=== PATIENT | male | born 1950 | race Caucasian/White ===

== ENCOUNTER → 2019-12-06 09:37 | Outpatient (BNVA) | payer MEDICARE, BC, SELFPAY | PROVIDERS: Family Provider Family Medicine; PCP Family Medicine; Visit Provider Urology | DX: R97.20 Elevated prostate specific antigen [PSA] (principal) | CPT/HCPCS: 81001; 84153 ==

== ENCOUNTER → 2019-12-20 11:54 | Outpatient (BNVA) | payer MEDICARE, BC, SELFPAY | PROVIDERS: Family Provider Family Medicine; PCP Family Medicine; Visit Provider Urology | DX: N40.0 Benign prostatic hyperplasia without lower urinary tract symptoms (principal); R97.20 Elevated prostate specific antigen [PSA] | CPT/HCPCS: 88305 ==

== ENCOUNTER → 2020-06-23 08:51 | Outpatient (BNVA) | payer MEDICARE, BC, SELFPAY | PROVIDERS: Family Provider Family Medicine; PCP Family Medicine; Visit Provider Urology | DX: N39.9 Disorder of urinary system, unspecified (principal); R97.20 Elevated prostate specific antigen [PSA] | CPT/HCPCS: 81003; G0103 ==

== ENCOUNTER → 2020-11-16 08:00 | Outpatient (BNVA) | payer MEDICARE, BC, SELFPAY | PROVIDERS: Family Provider Family Medicine; PCP Family Medicine; Visit Provider Urology | DX: R97.20 Elevated prostate specific antigen [PSA] (principal); N40.0 Benign prostatic hyperplasia without lower urinary tract symptoms | CPT/HCPCS: 81003; 84153 ==

== ENCOUNTER → 2020-12-02 11:53 | Outpatient (BNVA) | payer MEDICARE, BC, SELFPAY | PROVIDERS: Family Provider Family Medicine; PCP Family Medicine; Visit Provider Nurse Practitioner Family | DX: Z20.822 Contact with and (suspected) exposure to COVID-19 (principal) | CPT/HCPCS: 87635 ==

== ENCOUNTER 2020-12-04 17:46 | Emergency (ER) | payer MEDICARE, BC, SELFPAY ==
[2020-12-04 18:15] VITALS: BP 122/83; PULSE 100; RESP 16; TEMP 36.9; O2SAT 96
--- NOTE | 2020-12-04 19:57 | XRR_ITS ---
PROCEDURE INFORMATION: Exam: XR Chest Exam date and time: 12/04/2020 7:57 PM Age: 70 years old Clinical indication: Cough; Additional info: Fever TECHNIQUE: Imaging protocol: XR of the chest. Views: 1 view. COMPARISON: No relevant prior studies available. FINDINGS: Lungs: Unremarkable. No consolidation. Pleural spaces: Unremarkable. No pleural effusion. No pneumothorax. Heart/Mediastinum: Unremarkable. No cardiomegaly. Bones/joints: Moderate thoracic spondylosis. XR/XR chest 1V portable [id number] IMPRESSION: No acute findings. Radiation Dose CTDIVOL = (mGy): DLP = (mGy-cm)
--- NOTE | 2020-12-04 19:58 | ED_ITS ---
Documented by User: BIANKA Tabor 12/04/20 21:38 HPI - Fever General: Chief Complaint: Fever Stated Complaint: Fever Time Seen by Provider: 12/04/20 19:52 History of Present Illness: HPI Narrative: Patient's had fever x7 days. Just did not feel good. Patient is diabetic sugars have been in the mid 100s. Patient have Covid test done last Monday and it was sent for [facility] Covid testing was negative. Patient does complain about body aches. Denies any other Covid symptoms. MD elicited complaint: fever Onset (ago): day(s) Exacerbating factors: nothing Relieving factors: nothing Associated symptoms: Reports chills and other (Low back pain); Deny abdominal pain, chest pain, extremity pain, headache(s), nasal congestion, nausea or vomiting Review of Systems Const: Reports: fever(s), chills and body aches Eyes: Denies: change in vision or blurry vision ENMT: Denies: throat pain or nasal congestion Card: Denies: chest pain or dyspnea on exertion Resp: Denies: dyspnea, productive cough or non-productive cough GI: Denies: abdominal pain, nausea or vomiting : Denies: difficulty urinating Musc: Reports: back pain; Denies: extremity pain Skin/Breast: Denies: rash Neuro: Denies: headache(s) Psych: Denies: anxiety or depression Jp/Lymph: Denies: easy bruising PFS ED PFSH: Medical History (Updated 12/04/20 @ 21:37 by BIANKA Tabor) Elevated PSA Family History Other Diabetes Social History Smoking and tobacco status: never smoked Alcohol intake: current Alcohol intake frequency: few times a month Adopted: No Caregiver/support person: No Lives independently: No Marital status: Current occupational status: employed Physical Exam Const: COMMON NORMALS: no acute distress, average body habitus and patient oriented x3 HENMT: COMMON NORMALS: normocephalic HEAD & SCALP: normal to inspection and normocephalic FACE & SINUS: normal facial exam Eye: COMMON NORMALS: conjunctivae normal GENERAL EYE: appearance normal, both eyes and all related structures CONJUNCTIVA: Yes conjunctivae normal Neck/C-Spine: COMMON NORMALS: no JVD Chest: COMMONS NORMALS: normal inspection of the chest Resp: COMMON NORMALS: normal respiratory effort and clear to auscultation bilaterally AUSCULTATION: clear to auscultation bilaterally Cardio: COMMON NORMALS: no JVD, regular rate and regular rhythm RATE: regular rate RHYTHM: regular rhythm GI: COMMON NORMALS: Normal to inspection, nondistended, normoactive bowel sounds present Extremity: COMMON NORMALS: normal to inspection and full ROM Neuro: COMMON NORMALS: patient oriented x3 Course Vital Signs: Vital signs: Vital Signs Temperature 98.5 F 12/04/20 18:15 Pulse Rate 86 12/04/20 21:51 Respiratory Rate 16 12/04/20 21:51 Blood Pressure 124/78 12/04/20 21:51 Pulse Oximetry 98 12/04/20 21:51 MDM - Fever MDM Narrative: Medical decision making narrative: Patient presents with the fever intermittent over the last 7 days. Had Covid test x2 now both negative. Flu is negative rest labs look good except that he did spill some sugar over to his urine with some ketones. Patient is diabetic. Radiology study was negative patient is follow-up with Dr. Salazar who he has appoint with on Monday. Lab Data: Labs: Lab Results 12/04/20 12/04/20 12/04/20 20:14 20:14 20:14 WBC 8.7 10^3/uL 10^3/ uL (4.0-10.0) RBC 5.30 10^6/uL 10^6 /uL (4.1-5.3) Hgb 16.1 g/dL g/dL (11.7-16.6) Hct 48.6 % % (42.0-52.0) MCV 91.7 fl fl (80-94) MCH 30.4 pg pg (28.0-34.0) MCHC 33.1 g/dL g/dL (30.0-36.0) RDW 12.7 % % (12.1-15.1) Plt Count 195 10^3/cmm 10^3 /cmm (130-400) MPV 10.7 fL H fL (7.4-10.4) Neut % (Auto) 72.2 % % Lymph % (Auto) 14.2 % % [place] % (Auto) 8.9 % % Eos % (Auto) 3.0 % % Baso % (Auto) 1.4 % % Neut # (Auto) 6.24 10^3/uL 10^3 /uL (1.8-7.7) Lymph # (Auto) 1.2 10^3/uL 10^3/ uL (0.8-4.8) [place] # (Auto) 0.8 10^3/uL 10^3/ uL (0.2-0.9) Eos # (Auto) 0.3 10^3/uL 10^3/ uL (0.0-0.8) Baso # (Auto) 0.1 10^3/uL 10^3/ uL (0.0-0.1) Nucleated RBC % (a uto) 0 % % Nucleated RBCs # 0.0 /100WBC /100W BC Sodium 137 mmol/L mmol/L (136-145) Potassium 4.0 mmol/L mmol/L (3.5-5.1) Chloride 97 mmol/L L mmol/ L (98-107) Carbon Dioxide 27 mmol/L mmol/L (22-29) Anion Gap 17.0 (5-19) BUN 19 mg/dL mg/dL (8-23) Creatinine 0.7 mg/dL mg/dL (0.7-1.2) GFR Calculation 111.5 mL/min mL/m in (90-130) Glucose 122 mg/dL H mg/dL (65-115) Calculated Osmolal ity 288 mOsm/kg mOsm/ kg (285-295) Lactate 1.3 mmol/L mmol/L (0.5-2.2) Calcium 9.8 mg/dL mg/dL (8.5-10.5) Total Bilirubin 0.5 mg/dL mg/dL (0.15-1.2) AST 11 U/L U/L (0-40) ALT 10 U/L U/L (0-41) Alkaline Phosphata se 84 IU/L IU/L (40-130) Total Protein 7.6 g/dL g/dL (6.6-8.7) Albumin 4.1 g/dL g/dL (3.5-5.2) Globulin 3.5 g/dL g/dL (1.3-4.6) Urine Color Urine Appearance Urine pH Ur Specific Gravit y Urine Protein Urine Glucose (UA) Urine Ketones Urine Blood Urine Nitrate Urine Bilirubin Urine Urobilinogen Ur Leukocyte Polina ase Influenza Type A A g Influenza Type B A g SARS-CoV-2 Ag (Rap id) 12/04/20 12/04/20 12/04/20 20:20 20:42 20:44 WBC RBC Hgb Hct MCV MCH MCHC RDW Plt Count MPV Neut % (Auto) Lymph % (Auto) [place] % (Auto) Eos % (Auto) Baso % (Auto) Neut # (Auto) Lymph # (Auto) [place] # (Auto) Eos # (Auto) Baso # (Auto) Nucleated RBC % (a uto) Nucleated RBCs # Sodium Potassium Chloride Carbon Dioxide Anion Gap BUN Creatinine GFR Calculation Glucose Calculated Osmolal ity Lactate Calcium Total Bilirubin AST ALT Alkaline Phosphata se Total Protein Albumin Globulin Urine Color Yellow (Yellow) Urine Appearance Clear (CLEAR) Urine pH 5 (5-7) Ur Specific Gravit y 1.020 (1.005-1.030) Urine Protein Neg (Negative) Urine Glucose (UA) 4+ H (Normal) Urine Ketones 2+ H (Negative) Urine Blood Neg (Negative) Urine Nitrate Negative (Negative) Urine Bilirubin Neg (Negative) Urine Urobilinogen Norm mg/dL mg/dL (Negative) Ur Leukocyte Polina ase Negative (Negative) Influenza Type A A g Negative (Negative) Influenza Type B A g Negative (Negative) SARS-CoV-2 Ag (Rap id) Negative (Negative) Discharge Plan Discharge Patient Disposition: Home Clinical Impression: Acute viral syndrome Condition: Stable Prescriptions: No Action sildenafil 100 mg tablet 100 mg PO DAILY PRN (Reason: sexual activity) Qty: 10 RF: 12 lidocaine HCl 2 % jelly 5 ml INTRA-URET ONCE Qty: 1 RF: 0 Janumet XR 100-1,000 mg tablet, ER multiphase 24 hr 1 tab PO DAILY RF: 0 Jardiance 25 mg tablet 25 mg PO DAILY RF: 0 glyburide 1.25 mg tablet 1.25 mg PO DAILY RF: 0 aspirin [Adult Low Dose Aspirin] 81 mg tablet,delayed release (DR/EC) 81 mg PO DAILY RF: 0 atorvastatin 10 mg tablet 10 mg PO DAILY RF: 0 magnesium citrate 100 mg capsule 100 mg PO DAILY RF: 0 cinnamon bark [Cinnamon] 500 mg capsule 500 mg PO DAILY RF: 0 garlic 1,000 mg capsule 1,000 mg PO DAILY RF: 0 cholecalciferol (vitamin D3) 125 mcg (5,000 unit) capsule 125 mcg PO DAILY RF: 0 Discharge Orders: Discharge ED (Routine); Ordered 12/04/20 Ordered By: Tin Weiss Referrals: Santana Salazar MD [Primary Care Provider] - Discharge Diet: Usual diet Discharge Activity: Increase activity as tolerated Patient Instructions: Viral Syndrome (ED) Activity Restrictions/Additional Instructions: Keep appointment Dr. Salazar on Monday. Take plenty of fluids daily. Continue to monitor sugars. Can take Tylenol and/or ibuprofen for fever or discomfort. Can return to the ER if necessary. Coding Level of Care Code ED Pool Nurse for Chg Fwd Exam Comprehensive Documented by User: Debora Garcia MD 12/05/20 12:49 HPI - Fever General: Chief Complaint: Fever Stated Complaint: Fever Time Seen by Provider: 12/04/20 19:52 PFSH ED PFSH: Medical History (Updated 12/04/20 @ 21:37 by BIANKA Tabor) Elevated PSA Family History Other Diabetes Social History Smoking and tobacco status: never smoked Alcohol intake: current Alcohol intake frequency: few times a month Adopted: No Caregiver/support person: No Lives independently: No Marital status: Current occupational status: employed Course Vital Signs: Vital signs: Vital Signs Temperature 98.5 F 12/04/20 18:15 Pulse Rate 86 12/04/20 21:51 Respiratory Rate 16 12/04/20 21:51 Blood Pressure 124/78 12/04/20 21:51 Pulse Oximetry 98 12/04/20 21:51 MDM - Fever Lab Data: Labs: Lab Results 12/04/20 12/04/20 12/04/20 20:14 20:14 20:14 WBC 8.7 10^3/uL 10^3/ uL (4.0-10.0) RBC 5.30 10^6/uL 10^6 /uL (4.1-5.3) Hgb 16.1 g/dL g/dL (11.7-16.6) Hct 48.6 % % (42.0-52.0) MCV 91.7 fl fl (80-94) MCH 30.4 pg pg (28.0-34.0) MCHC 33.1 g/dL g/dL (30.0-36.0) RDW 12.7 % % (12.1-15.1) Plt Count 195 10^3/cmm 10^3 /cmm (130-400) MPV 10.7 fL H fL (7.4-10.4) Neut % (Auto) 72.2 % % Lymph % (Auto) 14.2 % % [place] % (Auto) 8.9 % % Eos % (Auto) 3.0 % % Baso % (Auto) 1.4 % % Neut # (Auto) 6.24 10^3/uL 10^3 /uL (1.8-7.7) Lymph # (Auto) 1.2 10^3/uL 10^3/ uL (0.8-4.8) [place] # (Auto) 0.8 10^3/uL 10^3/ uL (0.2-0.9) Eos # (Auto) 0.3 10^3/uL 10^3/ uL (0.0-0.8) Baso # (Auto) 0.1 10^3/uL 10^3/ uL (0.0-0.1) Nucleated RBC % (a uto) 0 % % Nucleated RBCs # 0.0 /100WBC /100W BC Sodium 137 mmol/L mmol/L (136-145) Potassium 4.0 mmol/L mmol/L (3.5-5.1) Chloride 97 mmol/L L mmol/ L (98-107) Carbon Dioxide 27 mmol/L mmol/L (22-29) Anion Gap 17.0 (5-19) BUN 19 mg/dL mg/dL (8-23) Creatinine 0.7 mg/dL mg/dL (0.7-1.2) GFR Calculation 111.5 mL/min mL/m in (90-130) Glucose 122 mg/dL H mg/dL (65-115) Calculated Osmolal ity 288 mOsm/kg mOsm/ kg (285-295) Lactate 1.3 mmol/L mmol/L (0.5-2.2) Calcium 9.8 mg/dL mg/dL (8.5-10.5) Total Bilirubin 0.5 mg/dL mg/dL (0.15-1.2) AST 11 U/L U/L (0-40) ALT 10 U/L U/L (0-41) Alkaline Phosphata se 84 IU/L IU/L (40-130) Total Protein 7.6 g/dL g/dL (6.6-8.7) Albumin 4.1 g/dL g/dL (3.5-5.2) Globulin 3.5 g/dL g/dL (1.3-4.6) Urine Color Urine Appearance Urine pH Ur Specific Gravit y Urine Protein Urine Glucose (UA) Urine Ketones Urine Blood Urine Nitrate Urine Bilirubin Urine Urobilinogen Ur Leukocyte Polina ase Influenza Type A A g Influenza Type B A g SARS-CoV-2 Ag (Rap id) 12/04/20 12/04/20 12/04/20 20:20 20:42 20:44 WBC RBC Hgb Hct MCV MCH MCHC RDW Plt Count MPV Neut % (Auto) Lymph % (Auto) [place] % (Auto) Eos % (Auto) Baso % (Auto) Neut # (Auto) Lymph # (Auto) [place] # (Auto) Eos # (Auto) Baso # (Auto) Nucleated RBC % (a uto) Nucleated RBCs # Sodium Potassium Chloride Carbon Dioxide Anion Gap BUN Creatinine GFR Calculation Glucose Calculated Osmolal ity Lactate Calcium Total Bilirubin AST ALT Alkaline Phosphata se Total Protein Albumin Globulin Urine Color Yellow (Yellow) Urine Appearance Clear (CLEAR) Urine pH 5 (5-7) Ur Specific Gravit y 1.020 (1.005-1.030) Urine Protein Neg (Negative) Urine Glucose (UA) 4+ H (Normal) Urine Ketones 2+ H (Negative) Urine Blood Neg (Negative) Urine Nitrate Negative (Negative) Urine Bilirubin Neg (Negative) Urine Urobilinogen Norm mg/dL mg/dL (Negative) Ur Leukocyte Polina ase Negative (Negative) Influenza Type A A g Negative (Negative) Influenza Type B A g Negative (Negative) SARS-CoV-2 Ag (Rap id) Negative (Negative) Discharge Plan Discharge Patient Disposition: Home Clinical Impression: Acute viral syndrome Condition: Stable Prescriptions: No Action sildenafil 100 mg tablet 100 mg PO DAILY PRN (Reason: sexual activity) Qty: 10 RF: 12 lidocaine HCl 2 % jelly 5 ml INTRA-URET ONCE Qty: 1 RF: 0 Janumet XR 100-1,000 mg tablet, ER multiphase 24 hr 1 tab PO DAILY RF: 0 Jardiance 25 mg tablet 25 mg PO DAILY RF: 0 glyburide 1.25 mg tablet 1.25 mg PO DAILY RF: 0 aspirin [Adult Low Dose Aspirin] 81 mg tablet,delayed release (DR/EC) 81 mg PO DAILY RF: 0 atorvastatin 10 mg tablet 10 mg PO DAILY RF: 0 magnesium citrate 100 mg capsule 100 mg PO DAILY RF: 0 cinnamon bark [Cinnamon] 500 mg capsule 500 mg PO DAILY RF: 0 garlic 1,000 mg capsule 1,000 mg PO DAILY RF: 0 cholecalciferol (vitamin D3) 125 mcg (5,000 unit) capsule 125 mcg PO DAILY RF: 0 Discharge Orders: Discharge ED (Routine); Ordered 12/04/20 Ordered By: Tin Weiss Referrals: Santana Salazar MD [Primary Care Provider] - Discharge Diet: Usual diet Discharge Activity: Increase activity as tolerated Patient Instructions: Viral Syndrome (ED) Activity Restrictions/Additional Instructions: Keep appointment Dr. Salazar on Monday. Take plenty of fluids daily. Continue to monitor sugars. Can take Tylenol and/or ibuprofen for fever or discomfort. Can return to the ER if necessary. Coding Level of Care Code ED Pool Nurse for [place] Fwd Exam Comprehensive
[2020-12-04 20:31] LABS: Add Urine Microscopic? NO; Charge for UA Resulting for Rev
[2020-12-04 20:33] LABS: Bilirubin Urine Neg (Negative); Blood Urine Neg (Negative); Glucose Urine UA 4+ (Normal); Ketones Urine 2+ (Negative); Leukocyte Esterase Urine Negative (Negative); Nitrate Urine Negative (Negative); Protein Urine Neg (Negative); Urine Appearance Clear (CLEAR); Urine Color Yellow (Yellow); Urobilinogen Urine Norm (Negative); pH Urine 5 (5-7)
[2020-12-04 20:53] LABS: Basophils # 0.1 10^3/uL (0.0-0.1); Basophils % 1.4 %; Eosinophils # 0.3 10^3/uL (0.0-0.8); Hematocrit 48.6 % (42.0-52.0); Hemoglobin 16.1 g/dL (11.7-16.6); Lymphocytes # 1.2 10^3/uL (0.8-4.8); Lymphocytes % 14.2 %; Mean Corpuscular HGB Conc 33.1 g/dL (30.0-36.0); Mean Corpuscular Hemoglobin 30.4 pg (28.0-34.0); Mean Corpuscular Volume 91.7 fl (80-94); Mean Platelet Volume 10.7 fL (7.4-10.4); Monocytes # 0.8 10^3/uL (0.2-0.9); Monocytes % 8.9 %; Neutrophils # 6.24 10^3/uL (1.8-7.7); Neutrophils % 72.2 %; Nucleated Red Blood Cells % 0 %; Platelet Count 195 10^3/cmm (130-400); Red Cell Distribution Width 12.7 % (12.1-15.1); White Blood Count 8.7 10^3/uL (4.0-10.0)
[2020-12-04 21:08] LABS: Alanine Aminotransferase 10 U/L (0-41); Albumin Level 4.1 g/dL (3.5-5.2); Alkaline Phosphatase 84 IU/L (40-130); Aspartate Amino Transferase 11 U/L (0-40); Blood Urea Nitrogen 19 mg/dL (8-23); Calcium 9.8 mg/dL (8.5-10.5); Carbon Dioxide 27 mmol/L (22-29); Chloride 97 mmol/L (98-107); Globulin 3.5 g/dL (1.3-4.6); Glomerular Filtration Rate 111.5 mL/min (90-130); Glucose 122 mg/dL (65-115); Osmolality Calculated 288 mOsm/kg (285-295); Sodium 137 mmol/L (136-145); Total Bilirubin 0.5 mg/dL (0.15-1.2); Total Protein 7.6 g/dL (6.6-8.7)
[2020-12-04 21:09] LABS: Lactate (Lactic Acid level) 1.3 mmol/L (0.5-2.2)
[2020-12-04 21:27] LABS: SARS Covid-2 Antigen Negative (Negative)
[2020-12-04 21:27] LABS: Influenza A by IFA Negative (Negative); Influenza B by IFA Negative (Negative)
[2020-12-04 21:51] VITALS: BP 124/78; PULSE 86; RESP 16; O2SAT 98
== END 2020-12-04 21:53 | disposition home or self-care (01) ==
PROVIDERS: Emergency Provider Nurse Practitioner Family; PCP Family Medicine
DX: B34.9 Viral infection, unspecified (principal); Z79.82 Long term (current) use of aspirin; Z20.822 Contact with and (suspected) exposure to COVID-19
CPT/HCPCS: 71045; 80053; 81003; 83605; 85025; 87426; 87804; 99283

== ENCOUNTER 2020-12-08 11:50 | Inpatient (IN) | payer MEDICARE, BC, SELFPAY ==
[2020-12-08 12:17] VITALS: BP 135/82; PULSE 85; RESP 16; TEMP 36.8; O2SAT 97
--- NOTE | 2020-12-08 12:23 | XR_ITS ---
WS: [id number] XR chest 1V portable [id number] REASON FOR EXAM: weakness, fevers FINDINGS: Chest is unchanged compared to 12/04/2020. The heart and mediastinum are within normal limits. Calcified granulomatous disease in both hemithoraces. No active pulmonary parenchymal or pleural disease is noted. Degenerative changes in the mid and lower thoracic spine. XR/XR chest 1V portable [id number] IMPRESSION: No acute chest abnormality.
--- NOTE | 2020-12-08 18:21 | ECG_ITS ---
[facility] Test Date: 2020-12-08 Pat Name: Diaz Whaley Department: Room: Gender: Male Procedure Tech: : 1950 Requested By: Anthony Gómez Order Number: [id number] MD: Dorys Hernandez M.D. Measurements Intervals [place] Rate: 80 P: 57 AK: 123 QRS: 8 QRSD: 99 T: 72 QT: 341 QTc: 394 Interpretive Statements SINUS RHYTHM POSSIBLE LEFT ATRIAL ENLARGEMENT [-0.1mV P-WAVE IN V1/V2] NONSPECIFIC T-WAVE ABNORMALITY No previous ECG available for comparison Electronically Signed On 12-08-2020 22:01:54 CDT by Dorys Hernandez M.D. [id number]
--- NOTE | 2020-12-08 18:27 | ED_ITS ---
HPI - General Adult General: Chief complaint: General Medical Stated complaint: Weakness, Shakiness Time Seen by Provider: 12/08/20 18:20 History of Present Illness: HPI narrative: Patient is a 70-year-old male comes to the ED with weakness. Patient says over the past approximately 10 days he has been having progressive weakness in his lower extremities bilaterally. The last 2 to 3 days the weakness in his lower legs obviously gotten worse and he has had 1 fall because of it. Denies any head trauma, loss of consciousness or any syncopal episodes. He describes the leg weakness as moving up his legs bilaterally. He also reports having some problems with completely emptying his bladder, but over the last 2 to 3 days he is having worsening symptoms of urinary retention and not completely emptying his bladder. Today feels like he is starting to feel some pressure in his bladder and only gets a little urine out when he tries to go. He reports some subjective fevers over the past 5 to 7 days. Patient had a negative rapid Covid and PCR Covid test performed on December 02 and December 04. Patient has been fully vaccinated for COVID-19 approximately 8 months ago. Denies any upper respiratory symptoms, cough, shortness of breath, chest pain, nausea/vomiting, bowel symptoms. Associated symptoms: Deny chest pain, dyspnea, headache(s), nausea, rash, palpitations or vomiting Review of Systems Const: Reports: fever(s); Denies: chills or fatigue Eyes: Denies: change in vision or eye discomfort ENMT: Denies: throat pain, odynophagia, nasal discharge or nasal congestion Card: Denies: chest pain, palpitations, edema, swelling of feet/ankles, dyspnea on exertion or orthopnea Resp: Denies: dyspnea, productive cough or non-productive cough GI: Reports: abdominal pain (Bladder pressure.); Denies: nausea, vomiting, diarrhea, constipation or hematochezia : Reports: difficulty urinating and oliguria; Denies: flank pain, dysuria or hematuria Musc: Denies: neck pain, back pain or extremity swelling Skin/Breast: Denies: rash or new lesions Neuro: Reports: weakness in extremities (Lower extremities), difficulty walkin g and frequent falls; Denies: headache(s) or numbness in extremities PFS ED PFSH: Medical History Elevated PSA Family History Other Diabetes Social History Smoking and tobacco status: never smoked Alcohol intake: current Alcohol intake frequency: few times a month Adopted: No Caregiver/support person: No Lives independently: No Marital status: Current occupational status: employed Physical Exam Const: COMMON NORMALS: no acute distress, patient oriented x3 and alert GENERAL APPEARANCE: cooperative and comfortable HENMT: COMMON NORMALS: normocephalic HEAD & SCALP: normocephalic MOUTH: Normal oral and palatal mucosa present THROAT: posterior oropharynx normal and uvula midline Neck/C-Spine: COMMON NORMALS: supple GENERAL: Yes normal visual inspection Resp: COMMON NORMALS: normal respiratory effort, No retractions, No use of accessory muscles and clear to auscultation bilaterally AUSCULTATION: clear to auscultation bilaterally Cardio: COMMON NORMALS: regular rate, regular rhythm, S1 normal heart sound present, S2 normal heart sound present, No gallops present (Cardio), No clicks present (Cardio), No murmurs present (Cardio) and Peripheral pulses 2+ throughout RATE: regular rate RHYTHM: regular rhythm HEART SOUNDS: S1 normal heart sound present and S2 normal heart sound present PERIPHERAL PULSES: Peripheral pulses 2+ throughout GI: COMMON NORMALS: Normal to inspection, nondistended, normoactive bowel sounds present, Soft to palpation, non-tender and no masses PALPATION: Yes Soft to palpation : COMMON NORMALS: Yes no CVA tenderness BLADDER/KIDNEY EXAM: Yes no CVA tenderness Back/Pelvis: COMMON NORMALS: no CVA tenderness Neuro: COMMON NORMALS: patient oriented x3, CN's II-XII intact bilaterally, moves all extremities, no focal motor deficits and no sensory deficits noted SENSORIUM/ORIENTATION: Yes alert SPEECH: speech normal GAIT: Yes Other gait observations present (small short steps and poor balance/unsteady) SENSORY EXAM: Yes extremities (intact) bilateral pin-prick: normal (Lower extremities) and light-touch: normal (Lower extremities); No sensory level loss detected MOTOR EXAM: 5/5 motor strength present throughout DEEP TENDON REFLEXES: Right patellar reflex intensity grade: 2+ (Normal to hyporeflex) and Left patellar reflex intensity grade: 2+ (Normal to hyporeflex) Skin: GENERAL SKIN EXAM: dry skin Course ED course: Bladder scan showed over 700 mls in the bladder. he was only able to urinate out a small amount and bladder pressure pain increasing. Vegas catheter was placed by nurse and 1100 mils of urine drained out. Consultations: Consultation #1: I contacted the neurologist Dr. Ching and told her about patient's symptoms. I told Dr. Ching the patient was sent here by PCP for concerns of possible Guillain-Prasad? syndrome. Dr. Ching thought patient more likely to have something coming from the spinal cord that is causing patient to have bilateral lower extremity weakness and acute urinary retention. She recommended to have patient admitted to the hospitalist and she will be consulted to see patient tomorrow morning. She said patient will likely need an MRI of the spine in the morning and possible orthospine doctor consult. Consultation #2: Contacted Dr. Parry and told him about patient case and Dr. Ching's recommendations for admission. He recommended ordering a CT lumbar spine and I placed order. Vital Signs: Vital signs: Vital Signs Temperature 98.5 F 12/08/20 23:53 Pulse Rate 84 12/08/20 23:53 Respiratory Rate 16 12/08/20 23:53 Blood Pressure 148/86 12/08/20 23:53 Pulse Oximetry 96 12/08/20 23:53 MDM - General Adult MDM Narrative: Medical decision making narrative: Patient is a 70-year-old male comes to the ED with progressive bilateral lower extremity weakness. Patient was sent here to the ED by PCP for further evaluation possible suspected Giullian Prasad? syndrome and neurologist referral. patient also developing acute urinary retention over the past 24 hours. He also reports subjective fevers as well over the past week. Patient tested negative for COVID-19 on Dec.04 and patient is fully vaccinated for COVID-19 as well. Vitals are stable. Bladder scan was performed and over 700 mls noted. Vegas catheter put in place and over 1,100 mls of urine drained out. Patient had normal reflexes of patella tendon bilaterally. Pinprick sensation test was normal on right and left lower extremities bilaterally. Patient was gotten up to ambulate he appears very unsteady and weak and very limited on distance that he could safely walk. Labs were unremarkable. Dr. Louis was made aware of patient case and recommended I call Dr. Ching for consult. I contacted Dr. Ching the neurologist she recommended having patient admitted to hospitalist and will see him in the morning for further evaluation. please see consultation #1 note above for more details. Contacted Dr. Parry told him about patient case patient was admitted. Lab Data: Attestation: I reviewed the patient's lab results. Labs: Lab Results 12/08/20 12/08/20 12/08/20 18:55 19:00 19:00 WBC 9.5 10^3/uL 10^3/ uL (4.0-10.0) RBC 5.18 10^6/uL 10^6 /uL (4.1-5.3) Hgb 15.8 g/dL g/dL (11.7-16.6) Hct 48.1 % % (42.0-52.0) MCV 92.9 fl fl (80-94) MCH 30.5 pg pg (28.0-34.0) MCHC 32.8 g/dL g/dL (30.0-36.0) RDW 12.6 % % (12.1-15.1) Plt Count 212 10^3/cmm 10^3 /cmm (130-400) MPV 10.9 fL H fL (7.4-10.4) Neut % (Auto) 67.8 % % Lymph % (Auto) 21.0 % % [place] % (Auto) 7.1 % % Eos % (Auto) 2.4 % % Baso % (Auto) 1.3 % % Neut # (Auto) 6.45 10^3/uL 10^3 /uL (1.8-7.7) Lymph # (Auto) 2.0 10^3/uL 10^3/ uL (0.8-4.8) [place] # (Auto) 0.7 10^3/uL 10^3/ uL (0.2-0.9) Eos # (Auto) 0.2 10^3/uL 10^3/ uL (0.0-0.8) Baso # (Auto) 0.1 10^3/uL 10^3/ uL (0.0-0.1) Nucleated RBC % (a uto) 0 % % Nucleated RBCs # 0.0 /100WBC /100W BC Sodium 137 mmol/L mmol/L (136-145) Potassium 3.8 mmol/L mmol/L (3.5-5.1) Chloride 96 mmol/L L mmol/ L (98-107) Carbon Dioxide 28 mmol/L mmol/L (22-29) Anion Gap 16.8 (5-19) BUN 23 mg/dL mg/dL (8-23) Creatinine 0.7 mg/dL mg/dL (0.7-1.2) GFR Calculation 111.5 mL/min mL/m in (90-130) Glucose 136 mg/dL H mg/dL (65-115) Calculated Osmolal ity 290 mOsm/kg mOsm/ kg (285-295) Calcium 9.7 mg/dL mg/dL (8.5-10.5) Total Bilirubin 0.4 mg/dL mg/dL (0.15-1.2) AST 9 U/L U/L (0-40) ALT 10 U/L U/L (0-41) Alkaline Phosphata se 82 IU/L IU/L (40-130) Creatine Kinase 64 U/L U/L (39-308) Troponin T Baselin e Troponin T 120 Min [place] Delta Troponin T NT-Pro-B Natriuret Pep Total Protein 7.7 g/dL g/dL (6.6-8.7) Albumin 4.3 g/dL g/dL (3.5-5.2) Globulin 3.4 g/dL g/dL (1.3-4.6) Urine Color Yellow (Yellow) Urine Appearance Clear (CLEAR) Urine pH 6 (5-7) Ur Specific Gravit y 1.020 (1.005-1.030) Urine Protein Neg (Negative) Urine Glucose (UA) 4+ H (Normal) Urine Ketones 1+ H (Negative) Urine Blood Neg (Negative) Urine Nitrate Negative (Negative) Urine Bilirubin Neg (Negative) Urine Urobilinogen Norm mg/dL mg/dL (Negative) Ur Leukocyte Polina ase Negative (Negative) 12/08/20 12/08/20 12/08/20 19:00 19:00 20:21 WBC RBC Hgb Hct MCV MCH MCHC RDW Plt Count MPV Neut % (Auto) Lymph % (Auto) [place] % (Auto) Eos % (Auto) Baso % (Auto) Neut # (Auto) Lymph # (Auto) [place] # (Auto) Eos # (Auto) Baso # (Auto) Nucleated RBC % (a uto) Nucleated RBCs # Sodium Potassium Chloride Carbon Dioxide Anion Gap BUN Creatinine GFR Calculation Glucose Calculated Osmolal ity Calcium Total Bilirubin AST ALT Alkaline Phosphata se Creatine Kinase Troponin T Baselin e 15 ng/L ng/L (0-15) Troponin T 120 Min [place] 15.88 ng/L H ng/L (0-15) Delta Troponin T 0.88 ABS# ABS# (0-10) NT-Pro-B Natriuret Pep 40 pg/mL pg/mL (0-125) Total Protein Albumin Globulin Urine Color Urine Appearance Urine pH Ur Specific Gravit y Urine Protein Urine Glucose (UA) Urine Ketones Urine Blood Urine Nitrate Urine Bilirubin Urine Urobilinogen Ur Leukocyte Polina ase Imaging Data^: CXR: Attestation: I personally reviewed and interpreted this imaging study as follows: Radiologist's impression: [address] [id number] ReportSigned Patient: Aye Whaley #: [id number]: 1950cct#:[id number]/Sex: 70 / MADM Date: 12/08/20Loc: [facility]/Bed:Attending Dr: Ordering Provider/Ordering MD: Earlene Nick Date of Service: 12/08/20 Procedure(s): XR chest 1V portable [id number] Accession Number(s): [id number] Report Number: [id number] WS: [id number] XR chest 1V portable [id number] REASON FOR EXAM: weakness, fevers FINDINGS: Chest is unchanged compared to 12/04/2020. The heart and mediastinum are within normal limits. Calcified granulomatous disease in both hemithoraces. No active pulmonary parenchymal or pleural disease is noted. Degenerative changes in the mid and lower thoracic spine. XR/XR chest 1V portable [id number] IMPRESSION: No acute chest abnormality. Dictated By:Toni White Jr MDSigned By:oTni White Jr MDSigned Date/Time:12/08/20 1305DD/ 1304 EKG Data^: EKG 1: Attestation: I personally reviewed and interpreted this EKG as follows: EKG interpretation date: 12/08/20 EKG interpretation time: 18:58 Interpretation: Normal sinus rhythm, 80 bpm, no ST segment elevation or depression seen. Computer generated interpretation: Chest X-Ray 12/08/20 12:23 IMPRESSION: No acute chest abnormality. Lumbar Spine CT 12/08/20 21:40 IMPRESSION: 1. L1-L2 bilobed posterior disc bulge mild bilateral foraminal narrowing. 2. L2-L3 broad-based disc bulge with moderate to severe spinal canal and bilateral foraminal narrowing. 3. L3-L4 broad-based disc bulge with severe spinal canal and moderate bilateral foraminal narrowing. 4. L4-L5 broad-based disc bulge with severe spinal canal and severe bilateral foraminal narrowing. 5. L5/S1 broad-based posterior disc bulge with moderate to severe bilateral foraminal narrowing. 6. Scattered areas of degenerative vacuum phenomenon throughout the spine. Radiation Dose CTDIVOL = (mGy): DLP = 2232.35 (mGy-cm) Discharge Plan Discharge Patient Disposition: Admitted As Inpatient Admit Provider: Nicol Parry Coding Level of Care Code ED Rotoprinter for Chg Fwd Exam Comprehensive
[2020-12-08 18:43] VITALS: BP 143/105; PULSE 96; RESP 15; O2SAT 96
[2020-12-08 19:13] LABS: Add Urine Microscopic? NO; Charge for UA Resulting for Rev
--- NOTE | 2020-12-08 19:14 | PC.NURSE ---
PATIENT WAS ABLE TO VOID 50 ML. THIS NURSE USED BLADDER SCANNER ON PATIENT FOR RESIDUAL URINE. PATIENT RETAINED HIGHEST READING OF 696 ML. PROVIDER NOTIFIED. GRACE ORDER TO BE PLACED.
[2020-12-08 19:15] LABS: Basophils # 0.1 10^3/uL (0.0-0.1); Basophils % 1.3 %; Eosinophils # 0.2 10^3/uL (0.0-0.8); Eosinophils % 2.4 %; Hematocrit 48.1 % (42.0-52.0); Hemoglobin 15.8 g/dL (11.7-16.6); Mean Corpuscular HGB Conc 32.8 g/dL (30.0-36.0); Mean Corpuscular Hemoglobin 30.5 pg (28.0-34.0); Mean Corpuscular Volume 92.9 fl (80-94); Mean Platelet Volume 10.9 fL (7.4-10.4); Monocytes # 0.7 10^3/uL (0.2-0.9); Monocytes % 7.1 %; Neutrophils # 6.45 10^3/uL (1.8-7.7); Neutrophils % 67.8 %; Nucleated Red Blood Cells % 0 %; Platelet Count 212 10^3/cmm (130-400); Red Blood Count 5.18 10^6/uL (4.1-5.3); Red Cell Distribution Width 12.6 % (12.1-15.1); White Blood Count 9.5 10^3/uL (4.0-10.0)
[2020-12-08 19:25] LABS: Protein Urine Neg (Negative); Urine Appearance Clear (CLEAR); Urine Color Yellow (Yellow); pH Urine 6 (5-7)
[2020-12-08 19:26] LABS: Bilirubin Urine Neg (Negative); Blood Urine Neg (Negative); Glucose Urine UA 4+ (Normal); Ketones Urine 1+ (Negative); Leukocyte Esterase Urine Negative (Negative); Nitrate Urine Negative (Negative); Urobilinogen Urine Norm (Negative)
[2020-12-08 19:43] LABS: Alanine Aminotransferase 10 U/L (0-41); Albumin Level 4.3 g/dL (3.5-5.2); Alkaline Phosphatase 82 IU/L (40-130); Anion Gap 16.8 (5-19); Aspartate Amino Transferase 9 U/L (0-40); Blood Urea Nitrogen 23 mg/dL (8-23); Calcium 9.7 mg/dL (8.5-10.5); Carbon Dioxide 28 mmol/L (22-29); Chloride 96 mmol/L (98-107); Creatine Phosphokinase 64 U/L (39-308); Globulin 3.4 g/dL (1.3-4.6); Glomerular Filtration Rate 111.5 mL/min (90-130); Glucose 136 mg/dL (65-115); Osmolality Calculated 290 mOsm/kg (285-295); Potassium 3.8 mmol/L (3.5-5.1); Sodium 137 mmol/L (136-145); Total Bilirubin 0.4 mg/dL (0.15-1.2); Total Protein 7.7 g/dL (6.6-8.7)
[2020-12-08 19:57] LABS: NT Pro B Type Natriuretic Pept 40 pg/mL (0-125)
[2020-12-08 19:58] LABS: Troponin(5th) Baseline 15 ng/L (0-15)
--- NOTE | 2020-12-08 20:08 | PC.NURSE ---
THIS NURSE PLACED GRACE CATHETER. PATIENT TOLERATED WELL. 1100 ML DRAINED. PROVIDER NOTIFIED.
--- NOTE | 2020-12-08 20:21 | ECG_ITS ---
[facility] Test Date: 2020-12-08 Pat Name: Diaz Whaley Department: Room: Gender: Male Information Operator: : 1950 Requested By: Anthony Gómez Order Number: [id number] Perez MD: Dorys Hernandez M.D. Measurements Intervals [place] Rate: 84 P: 70 ID: 126 QRS: 7 QRSD: 90 T: 66 QT: 345 QTc: 409 Interpretive Statements SINUS RHYTHM POSSIBLE LEFT ATRIAL ENLARGEMENT [-0.1mV P-WAVE IN V1/V2] Compared to ECG 12/08/2020 18:58:15 T-wave abnormality no longer present Electronically Signed On 12-08-2020 22:23:10 CDT by Dorys Hernandez M.D. [id number]
[2020-12-08 20:49] LABS: Troponin 5 2HR 15.88 ng/L (0-15); Troponin 5 2HR Delta 0.88 ABS# (0-10)
--- NOTE | 2020-12-08 21:17 | PC.NURSE ---
GRACE CATHETER BAG DRAINED. 1200 ML.
[2020-12-08 21:31] VITALS: BP 142/81; PULSE 96; RESP 16; O2SAT 96
--- NOTE | 2020-12-08 21:40 | CTR_ITS ---
PROCEDURE INFORMATION: Exam: CT Lumbar Spine Without Contrast Exam date and time: 12/08/2020 9:40 PM Age: 70 years old Clinical indication: Weakness; Additional info: Bilateral lower ext weakness with acute urinary retention TECHNIQUE: Imaging protocol: Computed tomography images of the lumbar spine without contrast. Radiation optimization: All CT scans at this facility use at least one of these dose optimization techniques: automated exposure control; mA and/or kV adjustment per patient size (includes targeted exams where dose is matched to clinical indication); or iterative reconstruction. COMPARISON: No relevant prior studies available. RADIATION DOSE METRICS: Total DLP (mGy-cm): 2232.35 FINDINGS: Vertebrae: Scattered areas of degenerative vacuum phenomenon throughout the spine. L1-L2: L1-L2 bilobed posterior disc bulge mild bilateral foraminal narrowing. L2-L3: L2-L3 broad-based disc bulge with moderate to severe spinal canal and bilateral foraminal narrowing. L3-L4: L3-L4 broad-based disc bulge with severe spinal canal and moderate bilateral foraminal narrowing. L4-L5: L4-L5 broad-based disc bulge with severe spinal canal and severe bilateral foraminal narrowing. L5-S1: L5/S1 broad-based posterior disc bulge with moderate to severe bilateral foraminal narrowing. Soft tissues: Unremarkable. CT/CT lumbar spine wo con* [id number] IMPRESSION: 1. L1-L2 bilobed posterior disc bulge mild bilateral foraminal narrowing. 2. L2-L3 broad-based disc bulge with moderate to severe spinal canal and bilateral foraminal narrowing. 3. L3-L4 broad-based disc bulge with severe spinal canal and moderate bilateral foraminal narrowing. 4. L4-L5 broad-based disc bulge with severe spinal canal and severe bilateral foraminal narrowing. 5. L5/S1 broad-based posterior disc bulge with moderate to severe bilateral foraminal narrowing. 6. Scattered areas of degenerative vacuum phenomenon throughout the spine. Radiation Dose CTDIVOL = (mGy): DLP = 2232.35 (mGy-cm)
[2020-12-08 22:00] VITALS: BP 153/85; PULSE 90; RESP 20; TEMP 36.9; O2SAT 96
[2020-12-08 22:06] VITALS: BMI 25.5
--- NOTE | 2020-12-08 23:11 | P.HP_ITS ---
Providers/Chief Complaint Admitting Physician: Nicol Parry Primary Care Provider: Santana Salazar MD Chief Complaint: Weakness, Shakiness History of Present Illness 70-year-old male with a past medical history significant for diabetes mellitus, hypercholesterolemia, erectile dysfunction, elevated PSA, who presented to the ER due to bilateral lower extremity weakness. Patient stated symptoms had been progressively worsening for over a weak. [place] unsteady with walking noting a fall without head trauma or LOC. History is somewhat inconsistent as he mentioned progressively ascending weakness however at the time of my eval he stated symptoms were equal at onset. Denied fecal incontinence. No saddle anesthesia. Noted back pain however no radiculopathy. He did however note acute onset of difficulty urinating. [place] he could not empty his bladder. Does follow with urology on an outpatient bases due to elevated PSA however denied any prior history of urinary retention. Denied any ongoing fever or chills however he was seen on 12/04 without upper respiratory tract symptoms during which time he was tested and found to be negative for COVID-19. Laboratory work-up on arrival showed a WBC of 9.5, hemoglobin 15.8, hematocrit of 48.1 and platelet count of 212. Sodium 137, potassium 3.8, chloride 96, bicarb 28, BUN 23 and a creatinine of 0.7 troponin T baseline of 15 with a r epeat of 15.88 at 2 hours. Urinalysis showed 4+ glucose, 1+ ketones, negative leukocyte esterase or nitrates. Chest x-ray did not show any evidence of acute cardiopulmonary abnormality. CT of lumbar spine showed severe spinal canal stenosis and multiple lumbar regions. Review of Systems General: Reports: 10 or more systems reviewed and unremarkable except in HPI and below Medications/Allergies Home Medications Medication Instructions Recorded Confirmed Last Taken Type aspirin 81 mg tablet,delayed 81 mg PO DAILY 11/25/19 12/02/20 Unknown History release empagliflozin 25 mg tablet 25 mg PO DAILY 11/25/19 12/02/20 Unknown History glyburide 1.25 mg tablet 1.25 mg PO DAILY 11/25/19 12/02/20 Unknown History sitagliptin 100 mg-metformin ER 1 tab PO DAILY 11/25/19 12/02/20 Unknown History 1,000 mg tablet,extended [id number] mp sildenafil 100 mg tablet 100 mg PO DAILY PRN #10 tab 12/06/19 12/02/20 Unknown Rx atorvastatin 10 mg tablet 10 mg PO DAILY 06/23/20 12/02/20 Unknown History cholecalciferol (vitamin D3) 125 125 mcg PO DAILY 06/23/20 12/02/20 Unknown History mcg (5,000 unit) capsule cinnamon bark 500 mg capsule 500 mg PO DAILY 06/23/20 12/02/20 Unknown History garlic 1,000 mg capsule 1,000 mg PO DAILY 06/23/20 12/02/20 Unknown History magnesium citrate 100 mg capsule 100 mg PO DAILY 06/23/20 12/02/20 Unknown History Allergies Allergy/AdvReac Type Severity Reaction Status Date / Time sulfamethoxazole Allergy ALGY-Hives Verified 12/02/20 11:43 [From Bactrim] trimethoprim [From Bactrim] Allergy ALGY-Hives Verified 12/02/20 11:43 PFSH Acute PFSH: Medical History (Updated 12/09/20 @ 05:33 by Nicol Parry MD) Diabetes Elevated PSA Family History Other Diabetes Social History Smoking and tobacco status: never smoked Alcohol intake: current Alcohol intake frequency: few times a month Adopted: No Caregiver/support person: No Lives independently: No Marital status: Current occupational status: employed Vitals/I&O/Wt Last Vital Signs Temp 98.5 F 12/08/20 23:53 Pulse 84 12/08/20 23:53 Resp 16 12/08/20 23:53 BP 148/86 12/08/20 23:53 Pulse Ox 96 12/08/20 23:53 Weight last 48 hrs Weight 76.26 kg Weight 75.296 kg Physical Exam Narrative: EXAM NARRATIVE: General : Alert, awake and oriented x 3 HEENT: Grossly unremarkable CVS: NSR Chest; CTABL ABD: Soft, NT , ND Ext ; No edema Neuro: CN 2-12 intact, MS 5/5, no sensory deficits. Unable to fully assess gait. Urinary Catheter Management^: Vegas Latex Free: Cath Placed During This Visit: yes Urinary Catheter Date of Insertion: 12/08/20 Urinary Catheter Time of Insertion: 19:55 Data : 12/08/20 19:00 12/08/20 19:00 A&P Assessment and plan (1) Urinary retention: Vegas placed Flomax 0.4 mg PO daily added Monitor u/o Concern for cord compression MRI lumbar spine ordered Status: Acute (2) Lower extremity weakness: Neurology consulted in ER Fall precautions CT lumbar spine - severe spinal canal stenosis multiple lumbar regions Stat MRI lumbar spine w/o contrast ordered R/o cord compression Will consult spine surgery in am Ddx - GBS syndrome PT consult Status: Acute (3) Diabetes: Sliding scale insulin Q6hr blood sugar checks Status: Acute (4) DVT prophylaxis: SCDs only Status: Acute Attestations Medical Necessity Statement*: Will require > 2 midnight stay in hospital for eval and treatment Time Spent in Patient Care: Greater than 35 minutes (>than 50% of time spent in counselling and/or direct pt care on unit) . Coding Level of Care Code Acute Yarn Washer for Chandan Damico Diagnoses Urinary retention R33.9 Lower extremity weakness R29.898 Diabetes E11.9 DVT prophylaxis Z29.9
[2020-12-08 23:53] VITALS: BP 148/86; PULSE 84; RESP 16; TEMP 36.9; O2SAT 96
[2020-12-09] VITALS (8 sets, daily range): BP systolic 114–134; BP diastolic 63–77; PULSE 79–93; RESP 16–19; TEMP 36.7–37.4; O2SAT 93–97
--- NOTE | 2020-12-09 00:02 | MRR_ITS ---
PROCEDURE INFORMATION: Exam: MR Lumbar Spine Without Contrast Exam date and time: 12/09/2020 12:02 AM Age: 70 years old Clinical indication: Low back pain; Additional info: Cord compression, acute urinary retension, gait abnormality TECHNIQUE: Imaging protocol: Multiplanar magnetic resonance images of the lumbar spine without intravenous contrast. COMPARISON: CT lumbar spine wo con* [id number] 12/08/2020 9:50 PM FINDINGS: Tubes, catheters and devices: Vegas catheter is position within the urinary bladder. Vertebrae: Moderately advanced degenerative hypertrophic vertebral body formation. Degenerative endplate irregularity throughout. Focus of increased T2 and increased T1 signal within L2 vertebral body could reflect atypical hemangioma or fatty deposition difficult to confirm in the absence of inversion recovery series. Spinal cord: The conus terminates at L1-L2 level. L1-L2: Facet arthritis with ligamentum flavum thickening manifest mild central canal stenosis. Mild inferior neural foraminal narrowing greater on the left. L2-L3: Facet arthritis with ligamentum flavum thickening and posterior disc osteophyte formation or disc bulge manifest moderate central canal stenosis and bilateral inferior neural foraminal narrowing greatest on the left. L3-L4: Posterior disc bulge or disc osteophyte formation with prominent bulky facet arthritis and ligamentum flavum thickening manifesting severe central canal stenosis. Moderate bilateral neural foraminal narrowing predominantly secondary to facet arthritis slightly greater on the left. L4-L5: Prominent bulky facet arthritis and ligamentum flavum thickening in combination with prominent posterior disc bulge or disc osteophyte formation manifest severe central canal stenosis with marked compression of the thecal sac measuring 0.8 cm antro posterior by 0.52 cm transversely. Severe bilateral neural foraminal narrowing. L5-S1: Diffuse degenerative disc desiccation with prominent narrowing of lumbar interspaces. Posterior disc bulge with bulky facet arthritis and ligamentum flavum thickening manifesting mild lateral canal stenosis and moderate to severe bilateral neural foraminal narrowing. Sacrum/coccyx: Area of increased T1 and increased T2 signal of the lower sacrum incompletely assessed. Soft tissues: Unremarkable. Kidneys and ureters: Left parapelvic cysts. MR/MR lumbar spine wo con* [id number] IMPRESSION: 1. Areas of increased T1 and T2 signal within L2 and the lower sacrum which could reflect atypical fatty deposition although unable to be confirmed due to the lack of inversion fat suppression series 2. Advanced degenerative changes throughout the lumbar spine with severe degenerative spondylosis and diffuse degenerative disc desiccation. 3. Severe central canal stenosis L3-L4 and L4-L5 with moderate central canal stenosis L2-L3. Radiation Dose CTDIVOL = (mGy): DLP = (mGy-cm)
--- NOTE | 2020-12-09 00:21 | ECG_ITS ---
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 Measurements Intervals [place] Rate: 81 P: 63 ME: 120 QRS: -16 QRSD: 89 T: 48 QT: 356 QTc: 414 Interpretive Statements SINUS RHYTHM POSSIBLE LEFT ATRIAL ENLARGEMENT [-0.1mV P-WAVE IN V1/V2] Compared to ECG 12/08/2020 20:13:04 No significant changes Electronically Signed On 12-09-2020 20:03:22 CDT by Marixa Lemon M.D. [id number]
--- NOTE | 2020-12-09 00:57 | PC.NURSE ---
pt transported to MRI via ambulance
[2020-12-09 01:02] LABS: Troponin 5 6HR 16.05 ng/L (0-15); Troponin 5 6HR Delta 1.05 ng/L (0-12)
--- NOTE | 2020-12-09 01:44 | PC.NURSE ---
pt back from MRI, no c/o at this time.
[2020-12-09] MEDS: sodium chloride 0.9% 1,000 ML 75 ML IV ×2 (04:11→22:04)
[2020-12-09 06:46] LABS: Glucose Point of Care 124 mg/dL (70-110)
--- NOTE | 2020-12-09 08:20 | P.CONIM_ITS ---
Providers/Reason For Consult Consulting Physician/Specialty*: Lois Hernandez Reason for Consult*: Progressive paralysis Attending Physician: Mary Abreu MD Primary Care Provider: Santana Salazar MD History of Present Illness History of Present Illness Diaz Whaley is a 70 year old man with subacute onset of weakness. I was called by the physician's licensed physical therapy assistant, Mr. Gómez, last evening with report that this 70-year-old man presented with bilateral lower extremity weakness to the point that he could barely hold his weight and 1200 mL urinary retention. He was not sure whether there was a sensory level. He was appropriately concerned that the patient might have a sending paralysis but I pointed out that with bilateral lower extremity weakness and urinary retention, spinal cord compression needed to be ruled out with MRI scans of the thoracic and cervical spine. I advised that if there were a sensory level, CAT scan could be done of the appropriate level stat. The patient had severe canal stenosis at L3-4 and L4-[address] Parry elected to call in the text for an emergency MRI last night. Only the lumbar spine was scanned. That study confirms severe central canal stenosis L3-4 and L4-5. I talked with the patient and I talked with Dr. Santana Salazar, who has been following this patient closely for the last several weeks. As the patient points out on his calendar on his phone, he had a routine visit with Dr. 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 He called for Covid testing 12/02 because of headache, chills, fatigue, loss of sense of smell. He was fully vaccinated.He was back in the emergency department with a fever 12/04/2020. He had normal CBC and CMP and unremarkable UA except that he was dehydrated. 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 He came to Dr. Salazar complaining of leg weakness and Dr. Salazar was concerned that he might have Guillain-Prasad? and sent him to the ER. He had 1200 mils in his bladder. He was having trouble walking. He had detectable reflexes in his legs. He remembers that Mr. Gómez checked sensation with a paperclip and that he could feel it. Mr. Gómez called me and I explained my concern that the patient might have spinal cord compression because of the urinary retention and that we would need to do MRI scans of cervical and thoracic spine in the morning as well as observing for continued progression of a sending weakness. By this morning the patient is experiencing some weakness in his right upper extremity. He was not aware of it until I tested him. He has fasciculations in the right proximal arm and in both calves. I talked with Dr. Salazar, who noted that this patient has been mildly encephalopathic yesterday when he saw him and that is certainly the case during my exam. The patient is fixated on his cell phone and trying to get information from there. He currently denies headache. Review of Systems Const: Reports: fever(s), chills, body aches and fatigue Eyes: Denies: change in vision or blurry vision ENMT: Denies: odynophagia Card: Denies: chest pain or palpitations GI: Denies: abdominal pain, nausea or vomiting : Reports: difficulty urinating, urinary hesitancy and urinary dribbling Musc: Reports: back pain and extremity pain (Pain in the gluteal muscles) Skin/Breast: Denies: rash Neuro: Reports: headache(s), weakness in extremities, difficulty walking and confusion; Denies: numbness in extremities Psych: Denies: anxiety or depression Endo: Denies: polyuria Jp/Lymph: Denies: easy bruising All/Imm: Denies: urticaria Meds/Allergies Home Medications and Allergies Home Medications Medication Instructions Recorded Confirmed Last Taken Type aspirin 81 mg tablet,delayed 81 mg PO DAILY 11/25/19 12/02/20 Unknown History release empagliflozin 25 mg tablet 25 mg PO DAILY 11/25/19 12/02/20 Unknown History glyburide 1.25 mg tablet 1.25 mg PO DAILY 11/25/19 12/02/20 Unknown History sitagliptin 100 mg-metformin ER 1 tab PO DAILY 11/25/19 12/02/20 Unknown History 1,000 mg tablet,extended [id number] mp sildenafil 100 mg tablet 100 mg PO DAILY PRN #10 tab 12/06/19 12/02/20 Unknown Rx atorvastatin 10 mg tablet 10 mg PO DAILY 06/23/20 12/02/20 Unknown History cholecalciferol (vitamin D3) 125 125 mcg PO DAILY 06/23/20 12/02/20 Unknown History mcg (5,000 unit) capsule cinnamon bark 500 mg capsule 500 mg PO DAILY 06/23/20 12/02/20 Unknown History garlic 1,000 mg capsule 1,000 mg PO DAILY 06/23/20 12/02/20 Unknown History magnesium citrate 100 mg capsule 100 mg PO DAILY 06/23/20 12/02/20 Unknown History Allergies Allergy/AdvReac Type Severity Reaction Status Date / Time sulfamethoxazole Allergy ALGY-Hives Verified 12/02/20 11:43 [From Bactrim] trimethoprim [From Bactrim] Allergy ALGY-Hives Verified 12/02/20 11:43 Current Medications Current Medications Generic Name Dose Route Start Last Admin Trade Name Freq PRN Reason Stop Dose Admin Sodium Chloride 1,000 mls @ 75 mls/hr 12/09/20 02:15 12/09/20 04:11 Sodium Chloride 0.9% IV 75 mls/hr .[id number] JACOB Administration PFSH Acute PFSH: Medical History Diabetes Elevated PSA Family History Other Diabetes Social History Smoking and tobacco status: never smoked Alcohol intake: current Alcohol intake frequency: few times a month Adopted: No Caregiver/support person: No Lives independently: No Marital status: Current occupational status: employed Vitals/I&O/Wt Last Vital Signs Temp 99.4 F 12/09/20 04:00 Pulse 91 12/09/20 04:00 Resp 19 H 12/09/20 04:00 BP 134/77 12/09/20 04:00 Pulse Ox 93 12/09/20 04:00 12/08/20 12/09/20 12/09/20 22:59 06:59 14:59 Intake Total 120 / 120 Output Total 900 / 900 Balance -780 / -780 Weight last 48 hrs Weight 168 lb 2 oz Weight 166 lb Physical Exam Narrative: EXAM NARRATIVE: GENERAL: The patient was thin with a healthy appearance and garbage in hospital attire. MENTAL STATUS: Orientation was full to 10 of 10 questions of orientation. Speech was fluent without word hesitation. No difficulty following a complex command. She kept referring back to his phone and pulling out his calendar. He could remember all of the details from yesterday. He was mildly encephalopathic. He kept referring back to his phone. He suddenly pulled his hat down over his eyes and said something about keeping his eyes covered. He was mildly inappropriate. CRANIAL NERVES: Visual acuity was intact to reading small print on his phone. Visual berman were full to confrontation, direct and consensual. Extraocular movements were full without nystagmus. Both slow pursuit and saccadic eye movements were normal. PERRLA. Face was symmetric at rest and with grimace. Facial sensation was intact in all three distributions of the fifth cranial nerve bilaterally to touch. Hearing was intact to moderate spokenvoice.. Tongue and palate were midline at rest and with protrusion of the tongue and elevation of the palate. Shoulders were symmetric at rest and with shoulder shrug. MOTOR: Marked proximal weakness in the legs, 3+/5. No foot drop. He has 4/5 strength proximal right upper extremity. There are fasciculations in the calves and in the right deltoid. SENSATION: No sensory level to sharp sensation. Touch intact. COORDINATION: No specific cerebellar signs DEEP TENDON REFLEXES: 2/4 in the knees, absent in the ankles. GAIT: Unable HEENT: Normocephalic without dysmorphic features. Conjunctivae were not injected and sclerae were nonicteric. Temporal artery pulses were strong bilaterally and the arteries were nontender. NECK: Carotid upstroke was strong bilaterally without bruits. The thyroid was not enlarged and there were no palpable lymph nodes. CHEST: Clear to auscultation. CARDIOVASCULAR: The heart sounds were normal without murmur or gallop. Regular rate and rhythm. Peripheral pulses were 2+ throughout in the distal extremities. EXTREMITIES: There was no edema or cyanosis. The skin was unremarkable. The spine exhibited normal thoracic kyphosis and normal lumbar lordosis without deformities. Urinary Catheter Management^: [place] Latex Free: Cath Placed During This Visit: yes Reason for Continuing Indwelling Catheter: Accurate Measurement of Urinary Output in Critically Ill Patients Urinary Catheter Date of Insertion: 12/08/20 Urinary Catheter Time of Insertion: 19:55 A&P Assessment and plan (1) AIDP (acute inflammatory demyelinating polyneuropathy): This gentleman has had confirmed new onset weakness in the right arm in the last 24 hours. He has lower motor neuron findings of fasciculations in both calves and his right deltoid. Dr. Salazar checked strength yesterday and found 5 out of 5 strength in both upper extremities. He has had subacute weakness developing over the course of the last week following a febrile illness. His clinical picture is consistent with acute inflammatory demyelinating polyneuropathy as the most likely and most pressing diagnosis. Urinary retention is not common but can occur as a feature of dysautonomia with this disorder. He has a confounding factor of severe lumbar stenosis at L3-4 and L4-5. Based on his medical health researcher films it looks like he also has multilevel cervical spinal stenosis and a few places in his thoracic spine that show some disc changes. Since we have upper extremity weakness today we can move the evaluation up into the cervical spine and brain, especially since he is encephalopathic. Mental status changes are unusual with Guillian Houghton but can occur. I think we should go ahead with IVIG treatment based upon his clinical presentation and progression. Watch his reflexes carefully. We probably should get baseline maximal negative inspiratory force and obtain MNIF once or twice a day. I spoke with Dr. Lois Hernandez, who is managing the patient's care. We will go ahead with MRI brain and cervical spine without contrast at this time. We may want to obtain spinal fluid at some point. Nerve conduction studies also at some juncture but not necessary now as they may be normal early on. DVT prophylaxis. Dr. Gillis is going to take a look at the patient today which is probably a good idea with his lumbar and cervical stenosis. Status: Acute (2) Lumbar canal stenosis: Status: Acute (3) Unspecified toxic encephalopathy: Status: Acute Coding Level of Care Code Acute Rn Review for [facility] Diagnoses AIDP (acute inflammatory demyelinating polyneuropathy) G61.0 Lumbar canal stenosis M48.061 Unspecified toxic encephalopathy G92.9
--- NOTE | 2020-12-09 08:39 | MR_ITS ---
WS: [id number] MRI BRAIN WITHOUT CONTRAST HISTORY: fasciculations, right arm weakness COMPARISON: None available. TECHNIQUE: Diffusion imaging, multiplanar T1, T2 and FLAIR imaging obtained. No evidence for acute infarct or hemorrhage. Mason-white matter differentiation is normal. Mild chronic microvascular ischemic disease. No prior large territory infarct. No hemorrhage. Mild bi lateral damaris ischemic changes. Ventricles and extra-axial spaces are normal. No inferior displacement of cerebellar tonsils. The sella turcica and pituitary gland are unremarkabl e. Dural venous sinuses and reno-sparks of Card[place] demonstrate no abnormality on this unenhanced studies. Paranasal sinuses: Clear. Mastoid air cells: Normal. Calvarium and scalp: Intact. MR/MR head wo con* [id number] IMPRESSION: 1. No acute infarct. 2. Mild chronic microvascular ischemic changes in the supratentorial white mat ter and bilaterally within the damaris.
--- NOTE | 2020-12-09 08:43 | MR_ITS ---
WS: [id number] MRI CERVICAL SPINE NONCONTRAST HISTORY: Fasciculations, right arm weakness COMPARISON: None available. Technique: Multiplanar, multisequence noncontrast imaging of the cervical spine. Mild straightening of the upper cervical spine and increased lordosis at C6-7. No marrow edema or fra cture. Advanced degenerative disc disease and osteophytosis and disc bulging at numerous levels. Craniocervical junction, C1 and C2 relationship, odontoid process and soft tissues are normal. C2-C3: Very mild osteophytic ridging. No stenosis. C3-C4: Diffuse osteophytic ridging. Extensive osteophytosis extending into the foramen, LEFT greater than RIGHT. Posterior displacement of the exiting nerve roots. Mild central with moderate foraminal s tenosis. C4-C5: Loss of the normal disc space with osteophytic ridging. Large bilateral foraminal osteophytes causing moderate to severe stenosis and displacement of the nerve roots. Mild central stenosis with m oderate to severe foraminal stenosis. C5-C6: Severe osteophytic ridging with central disc protrusion. Disc protrusion centrally extends asy mmetric to the LEFT. There is deformity and posterior displacement of the thecal sac and the nerve ro ots. Severe central and bilateral foraminal stenosis. Moderate bilateral facet arthritis. C6-C7: Diffuse osteophytic ridging with a large central to LEFT paracentral disc protrusion. Disc pro trusion extends caudad from the disc level posterior to C7. There is severe central and bilateral for aminal stenosis and deformity upon the cord. Moderate to severe facet arthritis. C7-T1: Osteophytic ridging with mild central and moderate foraminal narrowing. The extruded disc from C6-7 extends nearly to the disc space of C7-T1. Paraspinal soft tissue are normal. MR/MR cervical spin wo con* [id number] IMPRESSION: 1. Severe degenerative spondylosis and multiple areas of significant stenosis throughout the cervical spine. Areas of stenosis are due to combination of disc disease, large osteophytes and facet arthritis. 2. Severe central and bilateral foraminal stenosis at C5-6 and C6-7 due to com bination of osteophytes, disc protrusions and facet arthritis. Significant cont act on the ventral cord with deformity. At this time no myelomalacia. 3. Mild central with moderate bilateral foraminal stenosis at C3-4 and C7-T1. 4. Mild central with moderate to severe foraminal stenosis at C4-5. Foraminal stenosis is predominantly due to large osteophytes.
--- NOTE | 2020-12-09 08:57 | P.CONIM_ITS ---
Documented by User: MITUL Shah 12/09/20 09:12 Providers/Reason For Consult Consulting Physician/Specialty*: Ortho Spine Reason for Consult*: Leg Weakness Attending Physician: Mary Abreu MD Primary Care Provider: Santana Salazar MD History of Present Illness History of Present Illness Mr Diaz Whaley is a 70 year old male who presents to [facility] complaining of increased low back and leg weakness which has been progressively getting worse since the beginning of November 2020. 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 He denies any falls. He recently had progressive weakness in his legs as well as urine retention presented to the emergency room where he was admitted for medical management. Orthopedics was consulted for his leg weakness low back pain. He reports clumsiness and weakness in both legs with intermittent back pain that comes and goes. He describes his back pain is more of aching dull in nature. He states he can only walk a short distance before he has to sit down because of the clumsiness. He has a lot of numbness tingling in his feet. Recently he began having urine retention issues. Sitting down or leaning forward seems to give him some temporary relief with his leg pain. Ranks his pain is approximately 3 out of 10 on the pain scale today. Review of Systems General: Reports: 10 or more systems reviewed and unremarkable except in HPI and below Const: Reports: fever(s), chills, body aches and fatigue Eyes: Denies: change in vision, blurry vision or eye discomfort ENMT: Denies: throat pain, odynophagia, nasal discharge or nasal congestion Card: Denies: chest pain, palpitations, edema, swelling of feet/ankles, dyspnea on exertion or orthopnea Resp: Denies: dyspnea, productive cough or non-productive cough GI: Denies: abdominal pain, nausea, vomiting, diarrhea, constipation or leeanne tochezia : Reports: difficulty urinating, urinary hesitancy, urinary dribbling and oliguria; Denies: flank pain, dysuria or hematuria Musc: Reports: back pain and extremity pain (Pain in the gluteal muscles); Denies: neck pain or extremity swelling Skin/Breast: Denies: rash or new lesions Neuro: Reports: headache(s), weakness in extremities, difficulty walking, frequent falls and confusion; Denies: numbness in extremities Psych: Denies: anxiety or depression Endo: Denies: polyuria Leeanne/Lymph: Denies: easy bruising All/Imm: Denies: urticaria or acute wheezing Meds/Allergies Home Medications and Allergies Home Medications Medication Instructions Recorded Confirmed Last Taken Type aspirin 81 mg tablet,delayed 81 mg PO DAILY 11/25/19 12/09/20 Unknown History release empagliflozin 25 mg tablet 25 mg PO DAILY 11/25/19 12/09/20 Unknown History glyburide 1.25 mg tablet 1.25 mg PO DAILY 11/25/19 12/09/20 Unknown History sitagliptin 100 mg-metformin ER 1 tab PO DAILY 11/25/19 12/09/20 Unknown History 1,000 mg tablet,extended [id number] mp sildenafil 100 mg tablet 100 mg PO DAILY PRN #10 tab 12/06/19 12/09/20 Unknown Rx atorvastatin 10 mg tablet 10 mg PO DAILY 06/23/20 12/09/20 Unknown History cholecalciferol (vitamin D3) 125 125 mcg PO DAILY 06/23/20 12/09/20 Unknown History mcg (5,000 unit) capsule cinnamon bark 500 mg capsule 500 mg PO DAILY 06/23/20 12/09/20 Unknown History garlic 1,000 mg capsule 1,000 mg PO DAILY 06/23/20 12/09/20 Unknown History magnesium citrate 100 mg capsule 100 mg PO DAILY 06/23/20 12/09/20 Unknown History Allergies Allergy/AdvReac Type Severity Reaction Status Date / Time sulfamethoxazole Allergy ALGY-Hives Verified 12/02/20 11:43 [From Bactrim] trimethoprim [From Bactrim] Allergy ALGY-Hives Verified 12/02/20 11:43 Current Medications Current Medications Generic Name Dose Route Start Last Admin Trade Name Freq PRN Reason Stop Dose Admin Sodium Chloride 1,000 mls @ 75 mls/hr 12/09/20 02:15 12/09/20 04:11 Sodium Chloride 0.9% IV 75 mls/hr .[id number] JACOB Administration PFSH Acute PFSH: Medical History Diabetes Elevated PSA Family History Other Diabetes Social History Smoking and tobacco status: never smoked Alcohol intake: current Alcohol intake frequency: few times a month Adopted: No Caregiver/support person: No Lives independently: No Marital status: Current occupational status: employed Vitals/I&O/Wt Last Vital Signs Temp 99.4 F 12/09/20 04:00 Pulse 91 12/09/20 04:00 Resp 19 H 12/09/20 04:00 BP 134/77 12/09/20 04:00 Pulse Ox 93 12/09/20 04:00 12/08/20 12/09/20 12/09/20 22:59 06:59 14:59 Intake Total 120 / 120 Output Total 900 / 900 Balance -780 / -780 Weight last 48 hrs Weight 168 lb 2 oz Weight 166 lb Physical Exam Narrative: EXAM NARRATIVE: Patient presents with normal gait, normal tandem gait. Demonstrates raising up onto heels and toes with difficulty. Very unsteady with standing. Moderate palpatory or percussion pain throughout the paraspinous musculature of the thoracolumbar spine. Moderate muscle atrophy in both quads. Normal sensation to light touch through all dermatomal layers. Normal sensation light touch down both lower extremities with 4/5 motor strength throughout all motor groups. No palpable pain over the SI joints bilaterally. Negative Diaz and Michelle sign. Negative straight leg raise bilaterally. Skin is clear warm with normal station light touch calves are supple with no medial thigh tenderness negative Homans' sign. No palpable lymphadenopathy bilaterally. Reflexes are 1+ and symmetric about the knees and Achilles. No hyperreflexia or clonus. Downgoing Babinski's bilaterally. Dorsalis pedis and posterior tibial pulses are 2+. No palpable edema bilaterally. Const: COMMON NORMALS: patient oriented x3 HENMT: COMMON NORMALS: normocephalic HEAD & SCALP: normocephalic Resp: COMMON NORMALS: normal respiratory effort Cardio: COMMON NORMALS: regular rate and regular rhythm RATE: regular rate RHYTHM: regular rhythm GI: COMMON NORMALS: Normal to inspection, nondistended, normoactive bowel sounds present : COMMON NORMALS: Yes no CVA tenderness BLADDER/KIDNEY EXAM: Yes no CVA tenderness Back/Pelvis: COMMON NORMALS: no CVA tenderness Neuro: COMMON NORMALS: patient oriented x3 Psych: COMMON NORMALS: cooperative Skin: COMMON NORMALS: no wounds Urinary Catheter Management^: Vegas Latex Free: Cath Placed During This Visit: yes Reason for Continuing Indwelling Catheter: Accurate Measurement of Urinary Output in Critically Ill Patients Urinary Catheter Date of Insertion: 12/08/20 Urinary Catheter Time of Insertion: 19:55 A&P Assessment and plan (1) Spinal stenosis, lumbar region, with neurogenic claudication: Independently reviewed and discussed the MRI scan with him at length. At this point he is progressively became more weak since 27 November 2020 and during this admission has had urine retention. He is very symptomatic and with the severe stenosis at L4-5 as well as moderate to severe at L3-4. Discussed options of injections but with an epidural injecting volume into a tight space could certainly make his neurologic symptoms much worse. Last option would be surgical decompression. I will discuss with Dr. Gillis for further recommendations. Status: Acute (2) DDD (degenerative disc disease), lumbosacral: Status: Acute (3) Lower extremity weakness: Status: Acute Coding Level of Care Code Acute Car Body Inspector for [facility] Fwd Exam Comprehensive Diagnoses Spinal stenosis, lumbar region, with neurogenic claudication M48.062 DDD (degenerative disc disease), lumbosacral M51.37 Lower extremity weakness R29.898 Lumbar stenosis with neurogenic claudication M48.062 Documented by User: Mehran Gillis DO 12/09/20 10:51 Meds/Allergies Home Medications and Allergies Home Medications Medication Instructions Recorded Confirmed Last Taken Type aspirin 81 mg tablet,delayed 81 mg PO DAILY 11/25/19 12/09/20 Unknown History release empagliflozin 25 mg tablet 25 mg PO DAILY 11/25/19 12/09/20 Unknown History glyburide 1.25 mg tablet 1.25 mg PO DAILY 11/25/19 12/09/20 Unknown History sitagliptin 100 mg-metformin ER 1 tab PO DAILY 11/25/19 12/09/20 Unknown History 1,000 mg tablet,extended [id number] mp sildenafil 100 mg tablet 100 mg PO DAILY PRN #10 tab 12/06/19 12/09/20 Unknown Rx atorvastatin 10 mg tablet 10 mg PO DAILY 06/23/20 12/09/20 Unknown History cholecalciferol (vitamin D3) 125 125 mcg PO DAILY 06/23/20 12/09/20 Unknown History mcg (5,000 unit) capsule cinnamon bark 500 mg capsule 500 mg PO DAILY 06/23/20 12/09/20 Unknown History garlic 1,000 mg capsule 1,000 mg PO DAILY 06/23/20 12/09/20 Unknown History magnesium citrate 100 mg capsule 100 mg PO DAILY 06/23/20 12/09/20 Unknown History Allergies Allergy/AdvReac Type Severity Reaction Status Date / Time sulfamethoxazole Allergy ALGY-Hives Verified 12/02/20 11:43 [From Bactrim] trimethoprim [From Bactrim] Allergy ALGY-Hives Verified 12/02/20 11:43 PFSH Acute PFSH: Medical History Diabetes Elevated PSA Family History Other Diabetes Social History Smoking and tobacco status: never smoked Alcohol intake: current Alcohol intake frequency: few times a month Adopted: No Caregiver/support person: No Lives independently: No Marital status: Current occupational status: employed Physical Exam Urinary Catheter Management^: [place] Latex Free: Cath Placed During This Visit: no A&P Assessment and plan (1) Lumbar stenosis with neurogenic claudication: Patient has severe canal stenosis at L2-3, L3-4 and L4-5. I examined the patient and agree with above exam. I did discuss with him doing a L2-3 L3-4 L4- 5 decompression as early as Monday. However he is in the process of a neurologic work-up and we will wait for the findings from his neurologic work-up before doing any type of surgery on the patient. Patient has had severe stenosis likely for years and this is a acute on chronic issue in the lumbar spine. Will wait for the neurologic exam to be completed. Status: Acute Consult Attestations Medical Necessity Statement: per primary service Coding Level of Care Code Acute Car Body Inspector for [facility] Fwd Exam Comprehensive Diagnoses Spinal stenosis, lumbar region, with neurogenic claudication M48.062 DDD (degenerative disc disease), lumbosacral M51.37 Lower extremity weakness R29.898 Lumbar stenosis with neurogenic claudication M48.062
[2020-12-09] MEDS: pantoprazole DR 40 mg Tablet PO (09:25)
--- NOTE | 2020-12-09 09:33 | PC.CHAP ---
Pastoral Care Encounter/Spiritual Assessment Type of Contact [] Declined engineering assistant visit [] Patient/Family/Request visit [] Outpatient visit [] Follow-up visit [] Physician referral [] Code/Alert [x]x Routine visit [] Staff referral [] Actively dying [] Patient sleeping [] Family support [] [] Out of room [] Palliative care [] [] Receiving care in room [] Pre-surgical visit [] Trauma [] Long length of stay [] ICU visit [] Other: Relational/Emotional Strength [x] Patient feels connected with others/family/visitors/staff [] Distress [] Loneliness/isolation [] Abandonment Spirituality of Patient [x] Person of Charis [x] Attends Jew of their Charis [x] Believes in Prayer [x] Reads Bible or Congregation materials [] There are Spiritual issues to be addressed Central Service Technician Interventions [x] Prayer [x] Active listening [x] Non-anxious presence [x] Spiritual/emotional support [] Crisis/trauma care [] Spiritual counseling [] Bereavement support [] Provided bereavement packet [] Provided Bible/devotional materials [] Provided toy/stuffed animal, coloring book to patient or family member [] Provided Communion [] Anointing/[facility] [] Salvation [] Completed spiritual assessment [] Other: Impact on Illness or Injury [] Angry [] Fearful [] Anxious [] Often cries [] Exhaustion [x] Unable to work [] Unable to attend quaker [] Unable to walk/stand [] Unable to read [] Unable to drive [] Unable to eat/drink [] Unable to sleep [] Unable to be with family [] Patient intubated [] Other: Summary Time spent with patient 15 miun
--- NOTE | 2020-12-09 11:22 | PC.OT ---
OT EVALUATION ORDERS RECEIVED; WILL HOLD EVALUATION TODAY. AWAITING ORTHOPEDIC SPINE CONSULT.
--- NOTE | 2020-12-09 11:56 | P.PN_ITS ---
Subjective Subjective: Interval history: Seen this morning. He was also seen by Dr. Plata. He has been offered surgery for this Monday. Patient states he will think about it. I also was able to talk to Dr. Ching this morning. 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 Patient states he is doing well at this time. He was wobbly on his feet when he first came in but has not really gotten out of bed since then. Denies any recent illnesses. He states he was seeing Dr. Salazar recently. He states he will think about his surgery. He states that he does have a little bit of right upper extremity weakness but he did not notice that when he first presented to the hospital. Vitals/I&O/Wt Last Vital Signs Temp 99.0 F 12/09/20 09:44 Pulse 89 12/09/20 09:44 Resp 17 12/09/20 09:44 BP 126/72 12/09/20 09:44 Pulse Ox 93 12/09/20 04:00 12/08/20 12/09/20 12/09/20 22:59 06:59 14:59 Intake Total 120 / 120 Output Total 900 / 900 Balance -780 / -780 Weight last 48 hrs Weight 76.26 kg Weight 75.296 kg Physical Exam Narrative: EXAM NARRATIVE: General: Alert oriented x3, patient seen sitting up in bed appearing well. HEENT: Normocephalic, atraumatic, EOMI, Cardio: Regular rate rhythm, normal S1-S2, no murmurs rubs gallops, Respiratory: Good bilateral air entry, no wheezes no rhonchi appreciated GI: Abdomen soft, nontender, nondistended, bowel sounds + Behavior: Appropriate and cooperative Extremities: Pulses 2+, no edema, no cyanosis Neuro: Fluent speech, no word finding difficulty. He will to have a conversation with me. Cranial nerve II to XII intact. I did notice some weakness in his legs 3 out of 5 bilaterally. Strength upper extremities 4 out of 5. I did not appreciate any fasciculations. Sensation intact. Did not check patient's gait. Ankle reflexes absent. Urinary Catheter Management^: [place] Latex Free: Cath Placed During This Visit: yes Reason for Continuing Indwelling Catheter: Accurate Measurement of Urinary Output in Critically Ill Patients Urinary Catheter Date of Insertion: 12/08/20 Urinary Catheter Time of Insertion: 19:55 Data : 12/08/20 19:00 12/08/20 19:00 A&P Assessment and plan (1) AIDP (acute inflammatory demyelinating polyneuropathy): Status: Acute (2) Diabetes: Status: Acute (3) Lower extremity weakness: Status: Acute (4) Lumbar canal stenosis: Status: Acute (5) DDD (degenerative disc disease), lumbosacral: Status: Acute Additional A&P Information - Guilian [place] Syndrome Patient came with new onset weakness in right arm and also has been having lower extremity weakness. He did tell other doctors that saw him today that he had a febrile illness recently but when I asked him he told me he has not been sick at all and has not had any fevers or diarrhea or respiratory infections in the recent past. 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 He also has urinary retention which can be attributed to his enlarged prostate. Patient currently has a [place] in place. ?There is also confounding factor of severe lumbar stenosis at L3-L4. He was seen by Dr. Plata orthopedic surgeon in consultation this morning. He has recommended a spinal decompression surgery for the patient tentatively scheduled for this Monday. Patient states he will think about it and let us know if he wants to go for surgery. Surgery would also like to see results of neurological evaluation prior to proceeding. ?I discussed with Dr. Ching this morning. We will start IVIG 0.4 mg/kg/day x 5 days total. We will reassess patient daily watching his reflexes. I will also order NIF test for patient twice daily. -We will also obtain MRI brain and cervical spine without contrast at this time. We will also order a lumbar puncture. Diabetes: We will hold home hypoglycemic medications and start patient on low intensity sliding scale insulin at this time. Severe lumbar spine stenosis: Surgical decompression recommended. Patient will decide if he wants to proceed. Fluids: Not indicated Electrolytes: Replete as needed Nutrition: Diabetic diet Activity: Bedrest for now. Fall precautions DVT prophylaxis: Heparin subcu. Attestations Medical Necessity Statement*: Treated with IVIG for 5 days in hospital, potential spinal surgery 12/11. Time Spent in Patient Care: 16 - 35 minutes Coding Level of Care Code Acute Mental Health Program Manager for [facility] [place] Diagnoses AIDP (acute inflammatory demyelinating polyneuropathy) G61.0 Diabetes E11.9 Lower extremity weakness R29.898 Lumbar canal stenosis M48.061 DDD (degenerative disc disease), lumbosacral M51.37
[2020-12-09 12:47] LABS: Glucose Point of Care 114 mg/dL (70-110)
--- NOTE | 2020-12-09 13:14 | PC.PT ---
PT evaluation on hold until further advice from physicians involved.
[2020-12-09 17:30] LABS: Glucose Point of Care 152 mg/dL (70-110)
[2020-12-09] MEDS: insulin lispro 100 unit/1 mL SUBCUT ×2 (18:03→20:44)
[2020-12-09 19:37] LABS: Glucose Point of Care 201 mg/dL (70-110)
[2020-12-10] VITALS (7 sets, daily range): BP systolic 117–144; BP diastolic 65–84; PULSE 74–99; RESP 14–18; TEMP 36.7–37.3; O2SAT 95–98
[2020-12-10 06:10] LABS: Basophils # 0.1 10^3/uL (0.0-0.1); Basophils % 1.1 %; Eosinophils # 0.2 10^3/uL (0.0-0.8); Eosinophils % 2.6 %; Hematocrit 41.5 % (42.0-52.0); Hemoglobin 13.8 g/dL (11.7-16.6); Lymphocytes # 1.5 10^3/uL (0.8-4.8); Lymphocytes % 21.2 %; Mean Corpuscular HGB Conc 33.3 g/dL (30.0-36.0); Mean Corpuscular Hemoglobin 29.9 pg (28.0-34.0); Monocytes # 0.5 10^3/uL (0.2-0.9); Monocytes % 7.3 %; Neutrophils # 4.91 10^3/uL (1.8-7.7); Neutrophils % 67.7 %; Nucleated Red Blood Cells % 0 %; Platelet Count 204 10^3/cmm (130-400); Red Blood Count 4.61 10^6/uL (4.1-5.3); Red Cell Distribution Width 12.6 % (12.1-15.1); White Blood Count 7.3 10^3/uL (4.0-10.0)
[2020-12-10 06:27] LABS: Alanine Aminotransferase 7 U/L (0-41); Albumin Level 3.4 g/dL (3.5-5.2); Alkaline Phosphatase 65 IU/L (40-130); Aspartate Amino Transferase 8 U/L (0-40); Blood Urea Nitrogen 17 mg/dL (8-23); Calcium 8.8 mg/dL (8.5-10.5); Carbon Dioxide 27 mmol/L (22-29); Chloride 102 mmol/L (98-107); Globulin 3.2 g/dL (1.3-4.6); Glomerular Filtration Rate 164.4 mL/min (90-130); Glucose 154 mg/dL (65-115); Magnesium 1.9 mg/dL (1.7-2.3); Osmolality Calculated 289 mOsm/kg (285-295); Sodium 137 mmol/L (136-145); Total Bilirubin 0.4 mg/dL (0.15-1.2); Total Protein 6.6 g/dL (6.6-8.7)
[2020-12-10 06:35] LABS: Glucose Point of Care 137 mg/dL (70-110)
[2020-12-10 06:36] LABS: Procalcitonin 0.06 ng/mL (0-0.5)
[2020-12-10] MEDS: tamsulosin 0.4 mg Capsule PO (09:23)
[2020-12-10] MEDS: atorvastatin 40 mg Tablet 20 MG PO (09:23)
[2020-12-10] MEDS: pantoprazole DR 40 mg Tablet PO (09:23)
--- NOTE | 2020-12-10 10:30 | PM.PN ---
Subjective Subjective: Interval history: I returned to see him yesterday late afternoon and did not find any significant change in his neurologic exam. I could not get a left knee jerk last evening but I could this morning and he still has both knee jerks, the right is a little brisk. Ankle jerks absent, biceps and brachioradialis absent. He denies any change in strength. He is concerned that he is not getting out of bed or walking. He is not steady to walk without assistance. We again reviewed the onset of symptoms which occurred coincident with his flu illness a week ago. He actually had onset of fever 14 days ago with body aches and chills and low back pain. He sleeps on his belly and noticed that when he did that he had pain in his left and right hips not radiating. He walks about 1/2 mile to 1/4 mile from the parking lot into the school every day and has not experienced claudication. He has had minimal urinary hesitancy, normal post void residual at Dr. Andrew's office but it looks like that was a year ago. Progressive leg weakness over the last 2 weeks. Vitals/I&O/Wt Last Vital Signs Temp 98.5 F 12/10/20 07:43 Pulse 82 12/10/20 07:43 Resp 14 12/10/20 07:43 BP 139/84 12/10/20 07:43 Pulse Ox 97 12/10/20 07:43 12/09/20 12/10/20 12/10/20 22:59 06:59 14:59 Intake Total 1240 / 1780.000 360 / 360 Output Total 850 / 2150 1400 / 3550 Balance 390 / -370.000 -1400 / -1770.000 360 / 360 Weight last 48 hrs Weight 168 lb 2 oz Weight 166 lb Physical Exam Narrative: EXAM NARRATIVE: GENERAL: The patient was thin with a healthy appearance and appropriately groomed. MENTAL STATUS: Orientation was full to 10 of 10 questions of orientation. Speech was fluent without word hesitation. He has less push of speech and less tangentiality today. CRANIAL NERVES: 2 through 12 intact. MOTOR: He gave 5 out of 5 strength in all of the muscles of both upper extremities. He gave at least 4+ out of 5 strength and all the muscles of the legs but proximal muscles 3+/5. SENSATION: No level to pin. He perceives pin distally as well as proximally. Proprioception abnormal with poor midline stability COORDINATION: Bilateral [id number] ataxia DEEP TENDON REFLEXES: Brisk at the right knee, 1+ at the left knee, absent at the ankles. Absent biceps and brachioradialis but present triceps (trace). GAIT: He was able to go from supine to standing with my assistance. He has moderate midline instability and has keep his feet wide apart. CARDIOVASCULAR: The heart sounds were normal without murmur or gallop. Regular rate and rhythm. Urinary Catheter Management^: [place] Latex Free: Cath Placed During This Visit: yes Reason for Continuing Indwelling Catheter: Acute Urinary Retention or Obstruction Urinary Catheter Date of Insertion: 12/08/20 Urinary Catheter Time of Insertion: 19:55 Data : 12/10/20 05:20 12/10/20 05:20 A&P Assessment and plan (1) Spinal stenosis, lumbar region, with neurogenic claudication: Because he still has knee jerks and be because he had severe urinary retention I think we have to assume that his severe lumbar stenosis at 2 levels is the cause of his leg weakness. I went over that with him at length today. Dr. Gillis is managing. Status: Acute (2) AIDP (acute inflammatory demyelinating polyneuropathy): He still has not lost reflexes in his knees which he should have if this were acute inflammatory demyelinating polyneuropathy. It might be helpful to obtain spinal fluid but I expect his protein would be elevated just on the basis of his near spinal block and I do not think it would be safe to obtain spinal fluid for fear of precipitating acute profound weakness by completing his spinal block. The fact that his symptoms began with a febrile illness and proceeded gradually, and the fact that he has severe midline instability with posterior column involvement again raises concern about AIDP and we plan to complete 5 days of IVIG. Status: Acute Attestations Medical Necessity Statement*: Progressive lower extremity weakness, subacute with concern for Guillain-Prasad?. Coding Level of Care Code Acute Airset Molder for [facility] Fwd Diagnoses Spinal stenosis, lumbar region, with neurogenic claudication M48.062 AIDP (acute inflammatory demyelinating polyneuropathy) G61.0
--- NOTE | 2020-12-10 10:37 | PC.RESP ---
Pt had NIF of -98 this am, with 4 consistent attempts.
[2020-12-10] MEDS: sodium chloride 0.9% 1,000 ML 75 ML IV ×2 (10:59→20:35)
[2020-12-10 11:23] LABS: Vitamin B12 1108 pg/mL (232-1245)
[2020-12-10 11:26] LABS: Folate Level 9.4 ng/mL (4.5-32.2)
[2020-12-10 12:18] LABS: Glucose Point of Care 209 mg/dL (70-110)
--- NOTE | 2020-12-10 12:33 | P.PN_ITS ---
Subjective Subjective: Interval history: Seen and examined this morning. I also had a long discussion with Dr. Salazar his primary care physician this morning. He states that patient had a fever for 10 days which resolved around 06 December. Covid test was negative. He was unable to stand after that and patellar reflexes were positive. Patient also has a history of Asperger's/mildly autistic. He is a high-level functioning individual. Ankle reflexes were present before coming to the hospital. Also patient reported having mild headaches and photophobia to Dr. Salazar. Unsure if there is a viral encephalitis going on. He also states that patient's PSA was 12 and there is a question of BPH. This morning when I saw the patient he was laying in bed. He denied any active complaints. He did say his right arm weakness had improved and he felt a little bit better. In regards to spinal surgery he would like to think more about it and is still deciding on what he wants to do. The lights were off when I walked into the room and he said the light was bothering him a little bit but it was okay to turn them on while we talked. Patient denies having back pain or any pain at this time. NIF test was also performed by respiratory therapist. 12/09?NIF -60 12/10: NIF -98 with 4 consistent attempts Vitals/I&O/Wt Last Vital Signs Temp 98.5 F 12/10/20 07:43 Pulse 80 12/10/20 10:38 Resp 14 12/10/20 07:43 BP 139/84 12/10/20 07:43 Pulse Ox 98 12/10/20 10:38 12/09/20 12/10/20 12/10/20 22:59 06:59 14:59 Intake Total 1240 / 9528.433 3441.75 / 1328.75 Output Total 850 / 2150 1400 / 3550 Balance 390 / -370.000 -1400 / -0342.199 4018.75 / 1328.75 Weight last 48 hrs Weight 76.26 kg Physical Exam Narrative: EXAM NARRATIVE: General: Alert oriented x3, patient seen sitting up in bed appearing well. HEENT: Normocephalic, atraumatic, EOMI, Cardio: Regular rate rhythm, normal S1-S2, no murmurs rubs gallops, Respiratory: Good bilateral air entry, no wheezes no rhonchi appreciated GI: Abdomen soft, nontender, nondistended, bowel sounds + Behavior: Appropriate and cooperative Extremities: Pulses 2+, no edema, no cyanosis Neuro: Fluent speech, no word finding difficulty. Cranial nerve II to XII intact. Lower extremity strength improved 4 out of 5 bilaterally. Upper extremity strength also 4 out of 5. Right patellar reflex 1+, left patellar reflex 1+. Absent ankle reflexes today. Urinary Catheter Management^: Vegas Latex Free: Cath Placed During This Visit: yes Reason for Continuing Indwelling Catheter: Acute Urinary Retention or Obstru ction Urinary Catheter Date of Insertion: 12/08/20 Urinary Catheter Time of Insertion: 19:55 Data : 12/10/20 05:20 12/10/20 05:20 A&P Assessment and plan (1) AIDP (acute inflammatory demyelinating polyneuropathy): Status: Acute (2) Diabetes: Sliding scale insulin Q6hr blood sugar checks Status: Acute (3) Lower extremity weakness: Status: Acute (4) Lumbar canal stenosis: Status: Acute (5) DDD (degenerative disc disease), lumbosacral: Status: Acute Additional A&P Information - Guilian [place] Syndrome Patient came with new onset weakness in right arm and also has been having lower extremity weakness. He did tell other doctors that saw him today that he had a febrile illness recently but when I asked him he told me he has not been sick at all and has not had any fevers or diarrhea or respiratory infections in the recent past. 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 He also has urinary retention which can be attributed to his enlarged prostate. Patient currently has a Vegas in place. ?There is also confounding factor of severe lumbar stenosis at L3-L4. He was seen by Dr. Plata orthopedic surgeon in consultation this morning. He has recommended a spinal decompression surgery. Patient states he will think about it and let us know if he wants to go for surgery. Surgery would also like to see results of neurological evaluation prior to proceeding. -Continue to treat as Guillain-Prasad? for now with IVIG 0.4 mg/kg/day x 5 days total. We will reassess patient daily watching his reflexes. Continue to do nif test. -MRI brain and cervical spine have been complete, results pending. -We will hold off on lumbar puncture for now due to complex anatomy and spinal area at this time. Diabetes: We will hold home hypoglycemic medications and start patient on low intensity sliding scale insulin at this time. Severe lumbar spine stenosis: Surgical decompression recommended. Patient will decide if he wants to proceed. Fluids: Not indicated Electrolytes: Replete as needed Nutrition: Diabetic diet Activity: Bedrest for now. Fall precautions DVT prophylaxis: Heparin subcu. Attestations Medical Necessity Statement*: Anticipate another 4-5-day stay in the hospital. Time Spent in Patient Care: 16 - 35 minutes (>than 50% of time spent in counselling and/or direct pt care on unit) . Coding Level of Care Code Acute [employer] Manager for Chg Fwd Diagnoses AIDP (acute inflammatory demyelinating polyneuropathy) G61.0 Diabetes E11.9 Lower extremity weakness R29.898 Lumbar canal stenosis M48.061 DDD (degenerative disc disease), lumbosacral M51.37
[2020-12-10] MEDS: insulin lispro 100 unit/1 mL SUBCUT ×3 (12:57→20:54)
--- NOTE | 2020-12-10 14:47 | PC.OT ---
Addendum entered by Leonarda Garduno OT 12/10/20 16:39: OTR will be available on Monday for evaluation depending on status of spinal surgery Original Note: AWAITING PATIENT DECISION ON SPINAL SURGERY TO PERFORM OT EVALUATION.
[2020-12-10 17:14] LABS: Glucose Point of Care 194 mg/dL (70-110)
[2020-12-10 21:07] LABS: Glucose Point of Care 159 mg/dL (70-110)
[2020-12-11 03:59] VITALS: BP 134/79; PULSE 76; RESP 16; TEMP 36.9; O2SAT 97
[2020-12-11 06:28] LABS: Basophils # 0.1 10^3/uL (0.0-0.1); Basophils % 1.5 %; Eosinophils # 0.2 10^3/uL (0.0-0.8); Eosinophils % 2.5 %; Hematocrit 43.8 % (42.0-52.0); Hemoglobin 14.7 g/dL (11.7-16.6); Lymphocytes # 1.6 10^3/uL (0.8-4.8); Lymphocytes % 23.5 %; Mean Corpuscular HGB Conc 33.6 g/dL (30.0-36.0); Mean Corpuscular Hemoglobin 30.6 pg (28.0-34.0); Mean Corpuscular Volume 91.3 fl (80-94); Mean Platelet Volume 11.5 fL (7.4-10.4); Monocytes # 0.6 10^3/uL (0.2-0.9); Monocytes % 8.5 %; Neutrophils # 4.27 10^3/uL (1.8-7.7); Neutrophils % 63.7 %; Nucleated Red Blood Cells % 0 %; Platelet Count 161 10^3/cmm (130-400); Red Cell Distribution Width 12.7 % (12.1-15.1); White Blood Count 6.7 10^3/uL (4.0-10.0)
[2020-12-11 06:41] LABS: Glucose Point of Care 150 mg/dL (70-110)
[2020-12-11 06:54] LABS: Blood Urea Nitrogen 17 mg/dL (8-23); Carbon Dioxide 26 mmol/L (22-29); Chloride 99 mmol/L (98-107); Glomerular Filtration Rate 111.5 mL/min (90-130); Glucose 151 mg/dL (65-115); Osmolality Calculated 282 mOsm/kg (285-295); Sodium 134 mmol/L (136-145)
[2020-12-11 06:57] LABS: Anion Gap 13.1 (5-19); Potassium 4.1 mmol/L (3.5-5.1)
[2020-12-11 08:00] VITALS: BP 140/75; PULSE 70; RESP 16; TEMP 36.8; O2SAT 98
[2020-12-11] MEDS: pantoprazole DR 40 mg Tablet PO (08:42)
[2020-12-11] MEDS: atorvastatin 40 mg Tablet 20 MG PO (08:43)
[2020-12-11] MEDS: tamsulosin 0.4 mg Capsule PO (08:45)
[2020-12-11] MEDS: insulin lispro 100 unit/1 mL SUBCUT ×2 (08:45→12:36)
--- NOTE | 2020-12-11 09:37 | PC.NURSE ---
up with physical therapy at 0930
[2020-12-11 12:00] VITALS: BP 130/84; PULSE 74; RESP 18; TEMP 36.7; O2SAT 99
[2020-12-11 12:09] LABS: Glucose Point of Care 171 mg/dL (70-110)
--- NOTE | 2020-12-11 14:41 | PC.NURSE ---
This RN confirms student care and documentation.
--- NOTE | 2020-12-11 14:55 | PM.DCS ---
Discharge Providers Date of Admission: 12/08/20 21:30 Date of Discharge: December 11, 2020 Attending Provider at Admission: Nicol Parry Attending Provider at Discharge: Mary Abreu MD Primary Care Provider: Santana Salazar MD Diagnoses at Discharge Discharge Diagnosis (1) AIDP (acute inflammatory demyelinating polyneuropathy): Status: Acute (2) Diabetes: Status: Acute (3) Lower extremity weakness: Status: Acute (4) Lumbar canal stenosis: Status: Acute (5) DDD (degenerative disc disease), lumbosacral: Status: Acute Reason for Visit Reason for Visit: Weakness, Shakiness Hospital Course Hospital Course 70-year-old male with a past medical history significant for diabetes mellitus, hypercholesterolemia, erectile dysfunction, elevated PSA, who presented to the ER due to bilateral lower extremity weakness. Patient stated symptoms had been progressively worsening for over a weak. [place] unsteady with walking noting a fall without head trauma or LOC. History is somewhat inconsistent as he mentioned progressively ascending weakness however at the time of my eval he stated symptoms were equal at onset. Denied fecal incontinence. No saddle anesthesia. Noted back pain however no radiculopathy. He did however note acute onset of difficulty urinating. [place] he could not empty his bladder. Does follow with urology on an outpatient bases due to elevated PSA however denied any prior history of urinary retention. Denied any ongoing fever or chills however he was seen on 12/04 without upper respiratory tract symptoms during which time he was tested and found to be negative for COVID-19. Laboratory work-up on arrival showed a WBC of 9.5, hemoglobin 15.8, hematocrit of 48.1 and platelet count of 212. Sodium 137, potassium 3.8, chloride 96, bicarb 28, BUN 23 and a creatinine of 0.7 troponin T baseline of 15 with a repeat of 15.88 at 2 hours. Urinalysis showed 4+ glucose, 1+ ketones, negative leukocyte esterase or nitrates. Chest x-ray did not show any evidence of acute cardiopulmonary abnormality. CT of lumbar spine showed severe spinal canal stenosis and multiple lumbar regions. Hospital course: Patient came with new onset weakness in right arm and also has been having lower extremity weakness. He also had a 10-day febrile illness prior to developing lower extremity weakness. He was seen by Dr. Ching and the working diagnosis is Guillain-Prasad? at this point. We have started him on IVIG for 5 days. Lumbar puncture not performed due to complex anatomy and spinal area at this time. Patient will be discharged home and will have 2 last infusions of IVIG as an outpatient. Patient's Vegas was removed prior to discharge but he developed urinary retention. Bladder scan showed 631 mils and he was unable to void. He only voided tiny amounts. Therefore Vegas was replaced and he was discharged with a Vegas. He will need to see urology within 1 week for follow-up. I also started him on tamsulosin 0.4 daily. Unsure if the urinary retention is due to spinal stenosis versus BPH. He definitely needs a urology follow-up. Patient was also diagnosed with severe lumbar stenosis at L3-L4 region. There are other areas of spinal stenosis as well. He was seen by Dr. Gillis, orthopedic surgery. He has been recommended a spinal decompression. He will follow up with him as an outpatient after he has completed his IVIG treatments. Patient's NIF test has been good. He did not have ankle reflexes the first few days but today I was able to elicit 1+ ankle reflexes bilaterally. He was able to stand and take a few steps with support as well. Weakness has also improved. He will follow up with Dr. Ching as an outpatient within 1 week as well. I have gone over the plan with the patient in detail and he understands. Home health will also be set up for him. Physical Exam Narrative: EXAM NARRATIVE: General: Alert oriented x3, patient seen sitting up in a recliner today appearing much better. He states he feels better as well and the weakness is improved. HEENT: Normocephalic, atraumatic, EOMI, Cardio: Regular rate rhythm, normal S1-S2, no murmurs rubs gallops, Respiratory: Good bilateral air entry, no wheezes no rhonchi appreciated GI: Abdomen soft, nontender, nondistended, bowel sounds + Behavior: Appropriate and cooperative Extremities: Pulses 2+, no edema, no cyanosis Neuro: Fluent speech, no word finding difficulty. Cranial nerves not checked today but no focal abnormality noted. Lower extremity strength improved 4 out of 5 bilaterally. Upper extremity strength also 4 out of 5. Patient able to take a few steps. He states he has been walking a little bit with the help of a walker as well. Right patellar reflex 1+, left patellar reflex 1+. Achilles reflex 1+ present today bilaterally Urinary Catheter Management^: Vegas Latex Free: Cath Placed During This Visit: yes, but has since been removed by the nurse Reason for Continuing Indwelling Catheter: Decision to DC Catheter Urinary Catheter Date of Insertion: 12/08/20 Urinary Catheter Time of Insertion: 19:55 Date Urinary Catheter Removed: 12/11/20 Time Urinary Catheter Discontinued: 13:20 Discharge Data Data Completed and Pending: Completed Studies During Hospitalization Category Date Time Status CT lumbar spine w o con* [id number] Routi ne Cat Scan 12/08/20 21:40 Completed XR chest 1V stephen ble [id number] Urgent Exams 12/08/20 12:23 Completed MR cervical spin wo con* [id number] Stat MRI 12/09/20 08:43 Completed MR head wo con* [id number] Stat MRI 12/09/20 08:39 Completed MR lumbar spine w o con* [id number] Stat MRI 12/09/20 00:02 Completed Labs from last 24 hours 12/11/20 12/11/20 12/11/20 11:35 06:15 06:03 WBC RBC Hgb Hct MCV MCH MCHC RDW Plt Count MPV Neut % (Auto) Lymph % (Auto) [place] % (Auto) Eos % (Auto) Baso % (Auto) Neut # (Auto) Lymph # (Auto) Randolph # (Auto) Eos # (Auto) Baso # (Auto) Nucleated RBC % (a uto) Nucleated RBCs # Sodium 134 L Potassium 4.1 Chloride 99 Carbon Dioxide 26 Anion Gap 13.1 BUN 17 Creatinine 0.7 GFR Calculation 111.5 Glucose 151 H POC Glucose 171 H 150 H Calculated Osmolal ity 282 L Calcium 9.0 12/11/20 12/10/20 12/10/20 06:03 20:50 17:04 WBC 6.7 RBC 4.80 Hgb 14.7 Hct 43.8 MCV 91.3 MCH 30.6 MCHC 33.6 RDW 12.7 Plt Count 161 MPV 11.5 H Neut % (Auto) 63.7 Lymph % (Auto) 23.5 Randolph % (Auto) 8.5 Eos % (Auto) 2.5 Baso % (Auto) 1.5 Neut # (Auto) 4.27 Lymph # (Auto) 1.6 Randolph # (Auto) 0.6 Eos # (Auto) 0.2 Baso # (Auto) 0.1 Nucleated RBC % (a uto) 0 Nucleated RBCs # 0.0 Sodium Potassium Chloride Carbon Dioxide Anion Gap BUN Creatinine GFR Calculation Glucose POC Glucose 159 H 194 H Calculated Osmolal ity Calcium Vitals: Last Vital Signs Temp 98.0 F 12/11/20 12:00 Pulse 74 12/11/20 12:00 Resp 18 12/11/20 12:00 BP 130/84 12/11/20 12:00 Pulse Ox 99 12/11/20 12:00 Discharge Plan Discharge Patient Disposition: Home Condition: Stable Prescriptions: New tamsulosin 0.4 mg Capsule 0.4 mg PO DAILY 30 Days Qty: 30 RF: 0 Continued Janumet XR 100-1,000 mg tablet, ER multiphase 24 hr 1 tab PO DAILY RF: 0 Jardiance 25 mg tablet 25 mg PO DAILY RF: 0 glyburide 1.25 mg tablet 1.25 mg PO DAILY RF: 0 aspirin [Adult Low Dose Aspirin] 81 mg tablet,delayed release (DR/EC) 81 mg PO DAILY RF: 0 atorvastatin 10 mg tablet 10 mg PO DAILY RF: 0 magnesium citrate 100 mg capsule 100 mg PO DAILY RF: 0 cinnamon bark [Cinnamon] 500 mg capsule 500 mg PO DAILY RF: 0 garlic 1,000 mg capsule 1,000 mg PO DAILY RF: 0 cholecalciferol (vitamin D3) 125 mcg (5,000 unit) capsule 125 mcg PO DAILY RF: 0 Held sildenafil 100 mg tablet 100 mg PO DAILY PRN (Reason: sexual activity) Qty: 10 RF: 12 Hold Instructions: see pcp Discharge Orders: Discharge Order (Routine); Ordered 12/11/20 Ordered By: Mary Abreu Other Ambulatory Orders: DME: [facility] (Order) Location: None Selected Ordered By: Mary Abreu Referrals: [facility] [Other] (Please arrive at 7:00am for your infusion on both dates 12/12/2020 and 12/13/2020. You will come in through the main entrance (surgery entrance) and be registered. ) [facility] [Outside] Dot Ching MD [Physician] - 1 week (Please call on Monday to schedule an appointment to be seen in one week.) Mehran Gillis DO [Physician] - 12/29/20 11:15 Héctor Clarke MD [Physician] - 1 week (Please call on Monday to schedule an appointment to be seen by Dr. Andrew in one week for retention.) Santana Salazar MD [Primary Care Provider] - 12/15/20 3:30 pm Discharge Diet: Diabetic Discharge Activity: Increase activity as tolerated and As per PT/OT instructions Patient Instructions: Tamsulosin (By mouth), Lumbar Spinal Stenosis (DC), Degenerative Disc Disease (DC), Opioid Safety Discharge Attestations Time Spent in Discharge Care*: greater than 30 min Specific Discharge Activities: educating patient and evaluating patient/reviewing data Quality Metrics Clinical Quality Measures During this hospital stay, did patient experience: None Coding Level of Care Code Acute Chg FW DC note Diagnoses AIDP (acute inflammatory demyelinating polyneuropathy) G61.0 Diabetes E11.9 Lower extremity weakness R29.898 Lumbar canal stenosis M48.061 DDD (degenerative disc disease), lumbosacral M51.37
--- NOTE | 2020-12-11 16:28 | PC.NURSE ---
Catheter was reinserted without difficulty and 750 ml of pale yellow/clear urine was returned.
--- NOTE | 2020-12-11 17:12 | PC.NURSE ---
Patient and given education on infection prevention with dove catheter and PIV. All questions answered and verbalized understanding.
== END 2020-12-11 17:17 | disposition home health service (06) | DRG 73 ==
LOC: ER 18:20 → MEDSURG 21:32
PROVIDERS: Physician Assistant; Specialist; Admitting Provider Hospitalist; Emergency Provider Physician Assistant; PCP Family Medicine; Visit Provider Internal Medicine
DX: G61.81 Chronic inflammatory demyelinating polyneuritis (principal); G92.9 Unspecified toxic encephalopathy; G61.0 Guillain-Barre syndrome; F84.5 Asperger's syndrome; N40.1 Benign prostatic hyperplasia with lower urinary tract symptoms; R33.8 Other retention of urine; R39.14 Feeling of incomplete bladder emptying; E11.9 Type 2 diabetes mellitus without complications; E78.00 Pure hypercholesterolemia, unspecified; R97.20 Elevated prostate specific antigen [PSA]; M48.062 Spinal stenosis, lumbar region with neurogenic claudication; M48.02 Spinal stenosis, cervical region; M51.37 Other intervertebral disc degeneration, lumbosacral region; Z79.82 Long term (current) use of aspirin; Z79.84 Long term (current) use of oral hypoglycemic drugs
CPT/HCPCS: 36415; 36416; 51702; 51798; 70551; 71045; 72131; 72141; 72148; 80048; 80053; 81003; 82550; 82607; 82746; 82962; 83735; 83880; 84145; 84484; 85025; 93005; 96372; 97110; 97116; 97161; 97530; 99285; J1568; J1815; J7030

== ENCOUNTER 2020-12-12 07:00 | Outpatient (RCR) | payer MEDICARE, BC, SELFPAY ==
[2020-12-12 09:29] VITALS: BP 115/72; PULSE 89; RESP 18; TEMP 36.2; O2SAT 95
[2020-12-13 07:21] VITALS: BP 154/94; PULSE 110; RESP 18; O2SAT 96
== END 2020-12-27 23:59 | disposition home or self-care (01) ==
LOC: OPS 07:00
PROVIDERS: PCP Family Medicine; Visit Provider Internal Medicine
DX: G61.0 Guillain-Barre syndrome (principal)
CPT/HCPCS: 96365; 96366; J1568

== ENCOUNTER → 2020-12-25 09:35 | Outpatient (BNVA) | payer MEDICARE, BC, SELFPAY | PROVIDERS: PCP Family Medicine; Referring Provider Internal Medicine; Visit Provider Nurse Practitioner | DX: G61.0 Guillain-Barre syndrome (principal) | CPT/HCPCS: 99204 ==

== ENCOUNTER → 2021-01-11 10:10 | Outpatient (BNVA) | payer MEDICARE, BC, SELFPAY | PROVIDERS: PCP Family Medicine; Referring Provider Nurse Practitioner; Visit Provider Specialist | DX: G62.89 Other specified polyneuropathies (principal) | CPT/HCPCS: 95909; 95910 ==

== ENCOUNTER 2021-02-16 09:37 | Outpatient (CLI) | payer MEDICARE, BC, SELFPAY | END 2021-02-16 09:38 | disposition home or self-care (01) | LOC: LAB 09:41 | PROVIDERS: PCP Family Medicine; Visit Provider Urology | DX: R97.20 Elevated prostate specific antigen [PSA] (principal); R33.9 Retention of urine, unspecified | CPT/HCPCS: 81003; 84153; 87086 ==

== ENCOUNTER → 2021-02-17 08:33 | Outpatient (BNVA) | payer MEDICARE, BC, SELFPAY | PROVIDERS: PCP Family Medicine; Visit Provider Specialist | DX: G61.0 Guillain-Barre syndrome (principal); E11.9 Type 2 diabetes mellitus without complications; Z79.84 Long term (current) use of oral hypoglycemic drugs; M48.061 Spinal stenosis, lumbar region without neurogenic claudication; M48.02 Spinal stenosis, cervical region | CPT/HCPCS: 99214; 99215 ==

== ENCOUNTER 2021-03-22 08:32 | Outpatient (RCR) | payer MEDICARE, BC, SELFPAY | END 2021-03-29 23:59 | disposition home or self-care (01) | LOC: SPT 08:32 | PROVIDERS: PCP Family Medicine; Referring Provider Family Medicine; Visit Provider Family Medicine | DX: G61.0 Guillain-Barre syndrome (principal) | CPT/HCPCS: 97110; 97112; 97162 ==

== ENCOUNTER 2021-03-30 06:00 | Outpatient (RCR) | payer MEDICARE, BC, SELFPAY | END 2021-04-26 23:59 | disposition home or self-care (01) | LOC: SPT 06:00 | PROVIDERS: PCP Family Medicine; Referring Provider Family Medicine; Visit Provider Family Medicine | DX: G61.0 Guillain-Barre syndrome (principal) | CPT/HCPCS: 97110; 97112 ==

== ENCOUNTER 2021-04-27 06:00 | Outpatient (RCR) | payer MEDICARE, BC, SELFPAY | END 2021-05-14 10:10 | disposition home or self-care (01) | LOC: SPT 06:00 | PROVIDERS: PCP Family Medicine; Referring Provider Family Medicine; Visit Provider Family Medicine | DX: G61.0 Guillain-Barre syndrome (principal) | CPT/HCPCS: 97110; 97112; 97530 ==

== ENCOUNTER → 2021-05-17 13:23 | Outpatient (BNVA) | payer MEDICARE, BC, SELFPAY | PROVIDERS: PCP Family Medicine; Visit Provider Specialist | DX: M48.02 Spinal stenosis, cervical region (principal); M48.062 Spinal stenosis, lumbar region with neurogenic claudication; G61.0 Guillain-Barre syndrome | CPT/HCPCS: 99214 ==

== ENCOUNTER 2022-08-02 09:05 | Outpatient (CLI) | payer MEDICARE, BC, SELFPAY ==
--- NOTE | 2022-08-02 09:17 | MR_ITS ---
WS: [id number] MRI PELVIS with and without CONTRAST. COMPARISON: None Multiplanar, multisequence imaging is performed with and without contrast. T1, T2, DWI and dynamic c ontrast evaluation of the pelvis is submitted. No ADC mapping. No ascites or adenopathy within the pelvis. Urinary bladder is well distended but being encroached up on by the prostate gland. Prostate gland measures 6.3 x 6.1 cm and extends over a length of 6.5 cm. Marked variable signal inte nsity throughout the prostate including both the transitional and peripheral zones. Loss of the tomas l junctional anatomy due to the heterogeneity with variable echogenicity. There both cystic areas and nodules of decreased signal. Mild variable enhancement. The pelvic MRI protocol did not include EDC mapping with diffusion imaging to better evaluate the peripheral zone nodules. Seminal vesicles are enlarged and prominent. Small cystic mass associated with the anterior RIGHT hip joint is probably related to a labral tear. MR/MR pelvis wo/w con [id number] IMPRESSION: 1. Marked enlargement and heterogeneity of the prostate gland. Dedicated imagi ng of the prostate gland should be performed at a tertiary center. This study r equested as a pelvic MRI is not adequate to evaluate for prostate neoplasm. Ded icated MRI evaluation with very specific sequences should be performed for pros damon MRI. Recommend patient be evaluated at a tertiary center with dedicated im aging specifically for prostate neoplasm evaluation. 2. No adenopathy or ascites. 3. RIGHT hip labral tear.
[2022-08-02] MEDS: gadobenate dimeglumine 20 mL vial IV (11:24)
== END 2022-08-02 09:06 | disposition home or self-care (01) ==
PROVIDERS: PCP Family Medicine; Visit Provider Nurse Practitioner Family
DX: R97.20 Elevated prostate specific antigen [PSA] (principal); N40.0 Benign prostatic hyperplasia without lower urinary tract symptoms; S73.101A Unspecified sprain of right hip, initial encounter; X58.XXXA Exposure to other specified factors, initial encounter
CPT/HCPCS: 72197; A9577

== ENCOUNTER → 2024-06-26 10:20 | Outpatient (BNVA) | payer MEDICARE, BC, SELFPAY | PROVIDERS: PCP Family Medicine; Visit Provider Podiatrist Foot & Ankle Surgery | DX: M79.671 Pain in right foot (principal); M79.672 Pain in left foot; G61.0 Guillain-Barre syndrome; L60.3 Nail dystrophy; M21.611 Bunion of right foot; M21.612 Bunion of left foot; M20.11 Hallux valgus (acquired), right foot; M20.12 Hallux valgus (acquired), left foot | CPT/HCPCS: 73630; 99203 ==

== ENCOUNTER 2024-07-24 14:53 | Outpatient (CLI) | payer MEDICARE, BC, SELFPAY | END 2024-07-24 14:54 | disposition home or self-care (01) | LOC: SPT 14:54 | PROVIDERS: PCP Family Medicine; Visit Provider Podiatrist Foot & Ankle Surgery | DX: Z46.89 Encounter for fitting and adjustment of other specified devices (principal); M20.11 Hallux valgus (acquired), right foot; M20.12 Hallux valgus (acquired), left foot | CPT/HCPCS: L3030 ==